=== PATIENT | male | born 1945 | race Caucasian/White ===

== ENCOUNTER 2024-02-20 19:58 | Inpatient (IN) | payer MEDICARE, OTHER, SELFPAY ==
[2024-02-20] VITALS (23 sets, daily range): BP systolic 170–254; BP diastolic 76–169; BMI 34.2; BMI 31.8
[2024-02-20 13:38] LABS: % Basophils 0.5 % (0-2); % Eosinophils 1.1 % (0-6); % Immature Granulocytes 0.3 % (0-0.5); % Lymphocytes 11.4 % (20.5-51.1); % Monocytes 8.1 % (1.7-9.3); % Neutrophils 78.6 % (42.2-75.2); Absolute Eosinophils 0.1 10^3/uL (0-0.7); Absolute Monocytes 0.7 10^3/uL (0.1-0.6); Hematocrit 38.4 % (39.0-52.0); Hemoglobin 12.8 g/dL (13.0-18.0); Mean Corp Hgb Conc. 33.3 g/dL (33.0-37.0); Mean Corpuscular Hgb 27.2 pg (27.0-31.0); Mean Corpuscular Volume 81.5 fL (80.0-94.0); Mean Platelet Volume 11.6 fL (7.4-10.4); Nucleated Red Blood Cells % 0 % (-); Platelet Count 166 10^3/uL (130-400); Red Blood Cell Count 4.71 10^6/uL (4.70-6.10); Red Cell Dist. Width 14.9 % (11.5-14.5); White Blood Cell Count 8.9 10^3/uL (4.8-10.8)
[2024-02-20 13:47] LABS: ALT (SGPT) 24 U/L (0-50); AST (SGOT) 27 U/L (17-59); Albumin 4.8 g/dl (3.5-5.0); Alkaline Phosphatase 72 U/L (38-126); Blood Urea Nitrogen 16 mg/dl (9-20); Calcium 9.8 mg/dl (8.4-10.2); Carbon Dioxide 29 mmol/L (22-30); Chloride 96 mmol/L (98-107); Glucose 99 mg/dl (70-99); Sodium 134 mmol/L (135-145); Total Bilirubin 0.8 mg/dl (0.2-1.3); Total Protein 7.5 g/dl (6.3-8.2); eGFR 56.58
[2024-02-20 13:51] LABS: NT-proBNP 2630 pg/ml; Troponin I < 0.012 ng/ml
[2024-02-20 13:57] LABS: Potassium 4.3 mmol/L (3.5-5.1)
--- NOTE | 2024-02-20 15:57 | ED.GENMED ---
History of Present Illness
General
Chief Complaint: Blood Pressure Problem
Source: patient
Exam Limitations: none
Time Seen by Provider: 02/20/24 14:54
Nursing documentation reviewed up to this point in time: agreed with
Travel History
Have you had any contact with someone who has COVID-19?: No
Do you have any symptoms of coronavirus? Fever > 100 degrees, chills, cough, shortness of breath, sore throat, loss of taste or smell, muscle aches, or headache?: No
History of Present Illness
History of Present Illness:
79-year-old male with a past medical history of hypertension who presents to the emergency department with his son for evaluation of hypertension. Patient reports that he has had chronic difficult to control blood pressure. He is currently on
labetalol 100 mg 3 times daily, losartan 25 mg daily�losartan was added last week by his construction technician. He says that today he had an appointment with his primary doctor and was found to be severely hypertensive and was recommended to come to the
emergency room to be assessed. Patient says that he is asymptomatic here in the emergency room�denies any chest pain, headache, dizziness, speech or vision changes, focal weakness or numbness in extremities. He does say that he has had some issues
with shortness of breath over the past 6 to 12 months�he says this has been progressively worse and that he has been referred to see cardiology and pulmonology as an outpatient. He has chronic kidney disease follows with Dr. Lemus.
Past History
Past History
ED Past Medical History: HTN
ED Past Surgical History: None
Patient has exhibited threatening behavior?: No
PSI?: No
Social History
Tobacco: Non-smoker
Alcohol: Occasional
Personal:
Living: with family
Employment: Retired
Review of Systems
Review of Systems
All Other Systems: ROS reviewed and negative except as documented in HPI and ROS
Constitutional: Denies fever or chills
EENT: Denies sore throat or runny nose
Respiratory: Reports trouble breathing; Denies cough
Cardiac: Denies chest pain, diaphoresis or palpitations
ABD/GI: Denies abdominal pain, nausea, vomiting or diarrhea
: Denies flank pain
Musculoskeletal: Denies neck pain or back pain
Neurological: Denies dizzy, headache, weakness or numbness
Phy Exam
Physical Exam
Physical Exam:
General: Awake, alert; no acute distress
Head: Normocephalic, atraumatic
Eyes: Conjunctiva normal, EOMI, pupils equal round and reactive to light bilaterally
Throat: Airway intact, handling secretions
Neck: Trachea midline, no JVD
Lungs: Clear to auscultation bilaterally, no wheezing, rales, rhonchi
Heart: Regular rate and rhythm, no murmurs, gallops, or rubs
Abd: Soft, non distended, nontender
Neuro: Cranial nerves grossly intact, speech fluid
Skin: no rash
Extremities: +1 edema in the lower extremities, equal pulses in all extremities
Scores
Heart Failure Risk
Heart Failure Risk Score: Not Applicable
Heart Score for Chest Pain Patients
STEMI patient?: Not applicable
Withdrawal Assessment of Alcohol
Withdrawal Assessment Completed?: Not applicable
Course
Orders/Labs/Results
Orders:
Orders
02/20/24 13:17
Electrocardiogram (*1) Urgent
Reason for Study: Other
Other Reason for Exam: elevated BP
02/20/24 13:18
EKG- Treatment ONCE
02/20/24 13:19
Complete Blood Count/With Diff Urgent
Comprehensive Metabolic Panel Urgent
Pro-BNP [NT-proBNP] Urgent
Troponin I Urgent
02/20/24 15:56
HydrALAZINE [Apresoline] 10 mg IV NOW STA
02/20/24 15:57
CR Chest - 2 Views Urgent
Comment:
Reason For Exam: sob, severe HTN
02/20/24 16:24
Labetalol HCl [Trandate] 10 mg IV NOW STA
02/20/24 17:12
Labetalol HCl [Trandate] 10 mg IV NOW STA
Abnormal Lab Results
02/20/24
13:19
Hgb 12.8 L g/dL
(13.0-18.0)
Hct 38.4 L %
(39.0-52.0)
RDW 14.9 H %
(11.5-14.5)
MPV 11.6 H fL
(7.4-10.4)
Absolute Neuts (auto) 7.0 H 10^3/uL
(1.4-6.5)
Absolute Lymphs (auto) 1.0 L 10^3/uL
(1.2-3.4)
Absolute Monos (auto) 0.7 H 10^3/uL
(0.1-0.6)
Neutrophils % 78.6 H %
(42.2-75.2)
Lymphocytes % 11.4 L %
(20.5-51.1)
Sodium 134 L mmol/L
(135-145)
Chloride 96 L mmol/L
(98-107)
02/20/24 13:19
02/20/24 13:19
Vital Signs
Initial and Last Documented VS:
Initial Vital Signs
Temp Pulse Resp BP Pulse Ox
36.8 C 68 18 193/101 94
02/20/24 13:15 02/20/24 13:15 02/20/24 13:15 02/20/24 13:15 02/20/24 13:15
Last Documented Vital Signs
Temp Pulse Resp BP Pulse Ox
36.8 C 62 17 220/118 94
02/20/24 13:15 02/20/24 18:00 02/20/24 18:00 02/20/24 17:57 02/20/24 18:00
MDM/Problems Addressed
Differential Diagnosis Includes:
Hypertension
MDM/Problems Addressed:
79-year-old male presents with hypertension�found to be severely hypertensive at PCP office and referred to the emergency room for assessment. He says he has had difficult to control high blood pressure has been on labetalol and recently started on
losartan. He is asymptomatic here in the emergency room aside from what he describes as chronic dyspnea worsening over the past 6 to 12 months no worse today than usual. He is severely hypertensive here to 237/103; rest of vitals normal. Physical
exam as above. Plan to place an IV check labs including CBC and CMP will check troponin, BNP, chest x-ray and EKG. Will treat with IV hydralazine for severe hypertension. Will monitor closely reassess after the above.
After initial dose of hydralazine patient still with a blood pressure over 200 systolic we will treat with IV labetalol.
Initial labs reviewed CBC shows marginal anemia to 12.8 otherwise unremarkable, CMP no clinically significant abnormalities�creatinine acceptable 1.3. Troponin undetectable, BNP is slightly elevated at 2630. Chest x-ray shows small left pleural
effusion with what I suspect is likely atelectasis�although he has some shortness of breath that has been ongoing for 6 to 8 months and low suspicion for pneumonia. Continue to monitor as he remains severely hypertensive.
Despite IV hydralazine and IV labetalol x 1 patient remains with a systolic blood pressure over 200 will dose with additional labetalol here.
Patient remains hypertensive to 220/118 despite multiple parenteral antihypertensives here. I think at this point he should be admitted for blood pressure control. May also benefit from echocardiogram for further workup of his chronic dyspnea in
the setting of poorly controlled hypertension. Case discussed with hospitalist for admission.
Chronic conditions affecting care:
Hypertension
Acute Exacerbation and/or Progression of Chronic Illness:
Acutely hypertensive manage as above
Acute Exacerbation and/or Progression of Chronic Illness: HTN
*Radiology
Radiology exam reviewed: preliminary read by ED provider and radiology read reviewed
*Pulse Oximetry
Patient hypoxic: no
*Critical Care Note
Total Time (30-74mins, 75-104mins- exclusive of procedures): Not Applicable
Data Reviewed
Source: patient, records and family (Son)
Patient Management
Discussion with other providers: Hospitalist (Discussed with hospitalist)
Escalation/DeEscalation of care consider admission/obs:
Admission indicated
ED Attending Note
-
Portions of this chart may have been created with voice recognition software.� Occasional wrong word or��sound alike� substitutions may have occurred due to the inherent limitations of voice recognition software.
Discharge Plan
Departure
Patient Disposition: Admit
Date of Disposition: 02/20/24
Time of Disposition: 18:17
Admit to doctor: Jenni
Presentation/result/management discussed w/ accepting MD/DO: Hospitalist
Discharge Problem:
Hypertensive urgency
Prescriptions:
No Action
tamsulosin 0.4 mg capsule
0.4 mg PO QPM
thiamine HCl (vitamin B1) 100 mg Tablet
100 mg PO DAILY Qty: 90 0RF
nifedipine 30 mg Tablet Extended Release
30 mg PO BID Qty: 90 0RF
aspirin 81 mg Tablet,Delayed Release (Dr/Ec)
81 mg PO DAILY Qty: 90 0RF
folic acid 1 mg Tablet
1 mg PO DAILY Qty: 90 0RF
labetalol 100 mg Tablet
50 mg PO BID Qty: 180 0RF
cyanocobalamin (vitamin B-12) 1,000 mcg capsule
1,000 mcg PO DAILY Qty: 90 0RF
Referrals:
Neo Can CRNP [Family Provider] -
Interventions
Interventions:
*Risk Screen - Suicide Last Done: 02/20/24 15:02
*General Assessment Last Done: 02/20/24 15:02
*Neglect/Abuse Screening Last Done: 02/20/24 15:02
ED- Fall Risk Assessment Last Done: 02/20/24 15:02
*ED COVID-19 Vaccine History Last Done: 02/20/24 13:15
ED- Cardiac Assessment Last Done: 02/20/24 15:02
ED- Neurological Assessment Last Done: 02/20/24 15:02
ED- Pulmonary Assessment Last Done: 02/20/24 15:02
Discharge Date and Time
Print Language: LAO
[2024-02-20] MEDS: APRESOLINE 10 MG IV (16:05)
[2024-02-20] MEDS: TRANDATE 10 MG IV ×2 (16:35→17:18)
--- NOTE | 2024-02-20 18:29 | HPS.HSE ---
Addendum entered and electronically signed by Ruben Arteaga MD 02/21/24 08:43:
see separate note
Original Note:
Family Physician
-
Family Physician: OSIEL Rodriguez
Chief Complaint
-
Elevated Blood Pressure
History of Present Illness
Patient is a 79 y/o male with a past medical history of hypertension, atrial fibrillation, chronic kidney disease, and urinary retention who presents for high blood pressure. His lumber planer (Dr. Lemus) added losartan to his antihypertensive
regimen last week due to high systolic blood pressure readings in the office in the 180s-190s. Today he had elevated blood pressures in the PCP office and was sent to the emergency department with SBP 250. He admits to chronic dyspnea on exertion
and has appointments scheduled with pulmonology and cardiology. His legs are chronically edematous. He does not have any current complaints. He denies acute headache, vision changes, chest pain, and shortness of breath.
Medical History
Past Medical History
Past Medical History: Reports Other
Additional Past Medical History:
Paroxysmal Atrial Fibrillation
Essential Hypertension
CKD Stage III
BPH
Past Surgical History: Reports Other
Additional Past Surgical History:
Appendectomy
Social History
Tobacco: Former Smoker
Alcohol: Daily (2-3 beers)
Family History
Family History: Not pertinent
Allergies / Home Medications
Allergies reflects when Allergies were last updated in [employer].
Home Medications with original date entered in [employer]
Allergy/Medication List:
Allergies
Allergy/AdvReac Type Severity Reaction Status Date / Time
No Known Allergies Allergy Verified 02/20/24 13:16
Home Medications
aspirin 81 mg tablet,delayed release 81 mg PO DAILY #90 tabs 11/29/22
cyanocobalamin (vitamin B-12) 1,000 mcg capsule 1,000 mcg PO DAILY #90 caps 11/29/22
folic acid 1 mg tablet 1 mg PO DAILY #90 tabs 11/29/22
thiamine HCl (vitamin B1) 100 mg tablet 100 mg PO DAILY #90 tabs 11/29/22
finasteride 5 mg tablet 5 mg PO DAILY 02/20/24
labetalol 300 mg tablet 300 mg PO TID 02/20/24
losartan 25 mg tablet 25 mg PO DAILY 02/20/24
magnesium 250 mg tablet 250 mg PO DAILY 02/20/24
spironolactone 25 mg tablet 25 mg PO DAILY 02/20/24
Review of Systems
-
A 12 point ROS was completed and negative except as noted: Yes
Constitutional: Denies Fever or Chills
Respiratory: Reports Trouble Breathing (Chronic dyspnea on exertion)
Cardiac: Denies Chest Pain or Palpitations
Abdomen/GI: Reports Other (GERD)
: Reports Frequency
Neurological: Reports Headache (Chronic) and Numbness (Extremities for at least the past year)
Physical Exam
Vital Signs
Vital Signs
Temp Pulse Resp BP Pulse Ox
98.2 F 75 25 220/118 94
02/20/24 13:15 02/20/24 18:15 02/20/24 18:15 02/20/24 17:57 02/20/24 18:15
Physical Exam
General: Comfortable and Conversant
HEENT: Anicteric and Moist mucous membranes
Respiratory: Clear and Non Labored Respirations
Cardiac: S1/S2 and Irregular Rhythm; No Tachycardia
GI: Soft, Non Tender and Non Distended
Rectal: Deferred by Provider
Musculoskeletal: No Clubbing, No Cyanosis and Other (+2 edema bilateral lower extremities)
Skin: Warm and Dry
Neuro: Awake, Alert, Oriented and Nonfocal/grossly intact
Laboratory Results
-
02/20/24 13:19
02/20/24 13:19
Laboratory Results
Total Bilirubin 0.8 mg/dl (0.2-1.3) 04/08/24 13:19
AST 27 U/L (17-59) 02/20/24 13:19
ALT 24 U/L (0-50) 02/20/24 13:19
Alkaline Phosphatase 72 U/L (38-126) 02/20/24 13:19
Troponin I < 0.012 ng/ml 02/20/24 13:19
Data Reviewed
-
Lab Data: Labs Reviewed by me
Old Records: Reviewed
Impression/Plan
-
Hypertensive Urgency
-Admit to ICU for Nicardipine Drip
-Consult Nephrology
-Continue spironolactone, labetalol and losartan as prior to admission
Urinary Retention, Bladder Scan with 975mL
-Possibly contributing factor to his uncontrolled hypertension
-Place Hinton catheter
-Start Flomax
-Consult Urology
Bilateral Lower Ext Edema
-Check Lower Ext Doppler
-Give dose of Lasix
-Check Echo
-Monitor Is&Os and Daily Weights
Paroxysmal Atrial Fibrillation
-Continue labetalol for rate control
-Patient declined anticoagulation in the past
CKD Stage III
-Creatinine at baseline
BPH
-Continue Proscar
-Check bladder scans
Obesity due to Excess Calories
-Encourage weights loss
Alcohol Use Disorder
-Continue alcohol withdrawal protocol
DVT proph: SCDs
Code Status: Full Code
--- NOTE | 2024-02-20 18:49 | W.PN.UPDATE ---
Addendum entered and electronically signed by Ruben Arteaga MD 02/20/24 18:55:
Discussed with patient's son at bedside regarding the plan.
Also discussed about risks of stroke not being on anticoagulation with A-fib.
Original Note:
Update Note
Progress Note Update
79-year-old male presents with elevated blood pressure. Patient states that he always has had blood elevated blood pressure. He recently saw Dr. Brandon doctor and was started on losartan. He has been taking it for 1 week now. He supposed to get
repeat blood work as outpatient. He also has shortness of breath with exertion and he was advised to see pulmonology and cardiology. His cardiology appointment and pulmonary appointment are not for a while. He followed up with his PCP who took
his blood pressure was very elevated and patient was sent to the ER.
Patient states that he has numbness and tingling of his extremities for at least 1 year. Slight headache this morning. No weakness, visual changes diplopia dysphagia or any other symptoms. He does not have any chest pain.
He has had chronic lower extremity edema for a long time. He has a history of atrial fibrillation and he does not take anticoagulation by his choice. His has had a stroke and he does not want to take medicines. He wants to explore watchman
device as outpatient.
Seen and examined patient with physician assistant manager airside operations Isi Rueda and agree with the notes. Formulated plan together
On examination awake alert oriented x 3
Cardiac close no sinus regular
Chest clear to auscultation, decreased on the left side
Abdomen soft and nontender
Bilateral pedal edema
Neuroexam is nonfocal except for mild subjective numbness of the fingertips and toes. Again that is not new.
Hypertensive urgency
Will admit to ICU
Continue current medicines and add Cardene drip
Nephrology to evaluate
Will obtain echo
Dopplers of bilateral lower extremity
Will keep blood pressure less than 160 mmHg tonight with the help of the drip.
Continue finasteride for prostate disease
2 g sodium diet
Daily alcohol use-2 beers
Thiamine 200 mg daily
MSAS protocol
Will give 1 dose of Lasix now-patient looks volume overloaded may need more diuresis
Await echo
[2024-02-20] MEDS: LASIX 40 MG IV (19:11)
[2024-02-20 21:27] LABS: TSH Reflex To Free T4 0.81 uIU/ml (0.47-4.68)
--- NOTE | 2024-02-20 22:07 | W.PN.UPDATE ---
Update Note
Progress Note Update
79M presenting to ER w/ high blood pressure.
Recently started on Losartan by his word processing operator in addition to antihypertensive regimen last week due to high SBPs in office (180s-190s).
SBP 250 today @PCP visit - sent to ER.
Prior urologic history of acute urinary retention with hematuria and clots in 09/2022 (1400 cc drained after catheter placement).
Followed as outpatient by Dr. Humphrey for urinary retention w/ incomplete emptying and stable right hydronephrosis.
UDS 12/2022 => no high volume retention or VUR, +DO, equivocal for NICKERSON.
Prostate volume ~90 cc.
Patient preferred to avoid intervention via CIC vs. surgical intervention (TURP vs. robotic partial prostatectomy) - started on medical therapy w/ tamsulosin + finasteride by Urology.
Last seen as outpatient in 03/2023 - 3 mo visit scheduled, but patient was non-complaint w/ Urology F/U.
PVRs ranged 275-650 cc as outpatient.
Tamsulosin and finasteride NOT being taken by patient as of 02/13 outpatient visit w/ Dr. Lemus.
Cr 1.3 (baseline 1.4-1.5)
A/P:
Acute urinary retention
H/o BPH
Stable mild right hydronephrosis
CKD 3a
Chronic incomplete emptying
- Maintain Hinton catheter to drainage
- Start tamsulosin 0.4 mg qhs
- Start finasteride 5 mg daily
- Recommend RBUS to assess upper tracts
D/w Hospitalist.
[2024-02-20] MEDS: TRANDATE 300 MG PO (22:38)
[2024-02-20] MEDS: FLOMAX 0.400000000000000022 MG PO (22:38)
[2024-02-20] MEDS: CARDENE 200 IV (23:40)
[2024-02-21] VITALS (36 sets, daily range): BP systolic 118–176; BP diastolic 61–139; BMI 31.8
[2024-02-21 01:20] LABS: Urine Albumin 3+ (Neg - Trace); Urine Bilirubin Negative (Negative); Urine Character Slightly Cloudy (Clear); Urine Color Red; Urine Glucose Negative (Negative); Urine Ketone Negative (Negative); Urine Leukocyte 1+ (Negative); Urine Nitrite Negative (Negative); Urine Occult Blood 4+ (Negative); Urine Urobilinogen Negative (Neg - 1+)
[2024-02-21 01:38] LABS: Urine Bacteria Few (Negative); Urine Red Blood Cell 80-90 /HPF (0-2)
[2024-02-21] MEDS: ULTRAM 50 MG PO (02:08)
[2024-02-21 04:41] LABS: INR 1.11; PT 14.2 Sec (11.4-14.6)
[2024-02-21 04:42] LABS: APTT 36.7 Sec (23.4-35.0)
--- NOTE | 2024-02-21 04:56 | PTCARENOTE ---
02/20/24- received pt from ED, assessments and admission completed, son at bedside,
no c/o pain or discomfort, patient has +3 edema to b/l/e, no other skin issues. patient having some leg cramps, feet elevated with effective results.
cardine drip initiated at 2.5 for spb>200
patient arrived with cm with pink tinged urine, has hx of BPH and retention (ED placed cm and emptied 3400 ml)
02/21/24 - cardine increased to 5.0 for spb of 190, cm continues to have pink/red urine, ED says it was difficult placement.
according to patient this is norrmal for him after getting a cm.
0300 - cardine decreased to 2.5 for sbp of 144
0400- cardine off for sbp of <135, labs drawn and sent no new orders at this time,
cm has some clots and is darker red, WIRELINE FIELD OPERATOR aware.
call cadena and personal belongings with in reach, no further needs at this time.
[2024-02-21 05:31] LABS: Hematocrit 39.5 % (39.0-52.0); Hemoglobin 13.3 g/dL (13.0-18.0); Mean Corp Hgb Conc. 33.7 g/dL (33.0-37.0); Mean Corpuscular Hgb 27.4 pg (27.0-31.0); Mean Corpuscular Volume 81.4 fL (80.0-94.0); Mean Platelet Volume 11.9 fL (7.4-10.4); Platelet Count 167 10^3/uL (130-400); Red Blood Cell Count 4.85 10^6/uL (4.70-6.10); Red Cell Dist. Width 14.9 % (11.5-14.5); White Blood Cell Count 11.4 10^3/uL (4.8-10.8)
[2024-02-21 05:54] LABS: Blood Urea Nitrogen 19 mg/dl (9-20); Calcium 9.5 mg/dl (8.4-10.2); Carbon Dioxide 28 mmol/L (22-30); Chloride 98 mmol/L (98-107); Estimated Creatinine Clearance 56 ml/min; Glucose 100 mg/dl (70-99); HDL Cholesterol 66 mg/dl; LDL Cholesterol, Calculated 52 mg/dl; Phosphorus 4.2 mg/dl (2.5-4.5); Potassium 3.7 mmol/L (3.5-5.1); Sodium 134 mmol/L (135-145); Total Cholesterol 146 mg/dl (50-199); Triglyceride 140 mg/dl (10-149); Very Low Density Lipoprotein 28 mg/dl (0-30); eGFR 51.77
[2024-02-21] MEDS: PROSCAR 5 MG PO (07:37)
[2024-02-21] MEDS: VITAMIN B1 100 MG PO (07:37)
[2024-02-21] MEDS: VITAMIN B-12 1000 MCG PO (07:37)
[2024-02-21] MEDS: ASPIR LOW (ENTERIC COATED) 81 MG PO (07:38)
[2024-02-21] MEDS: ALDACTONE 25 MG PO (07:38)
[2024-02-21] MEDS: FOLVITE 1 MG PO (07:38)
[2024-02-21] MEDS: PROTONIX 40 MG PO (07:39)
[2024-02-21] MEDS: COZAAR 25 MG PO (07:39)
[2024-02-21] MEDS: TRANDATE 300 MG PO ×3 (07:40→21:14)
--- NOTE | 2024-02-21 08:42 | W.PN.HOSP.TC ---
Addendum entered and electronically signed by Ruben Arteaga MD 02/21/24 09:01:
Correction-alcohol patient drinks 2 beers a day
Original Note:
Today's Communication/Plan
-
Labetalol 3 times daily is not be a good idea in terms of patient being compliant taking the medicine.
Last creatinine improved with can try more Lasix
A-fib chronically distended bladder was contributing to lower extremity edema , calcium nick may not be a bad idea to be considered.
Assessment / Plan
Assessment / Plan
79-year-old male with lower extremity edema, hypertension
On examination patient awake alert
Feeling better
Cardiovascular system S1-S2 irregular,, Short systolic murmur at apex
Chest clear to auscultation
Bilateral lower extremity better neuroexam nonfocal
# Hypertensive urgency
Was briefly on Cardene drip yesterday
Continue spironolactone, labetalol, losartan
Nephrology consulted. May need to make adjustments to the above regimen.
Ultrasound-cortical thinning of each kidney suggesting medical renal disease. Chronic mild hydronephrosis of the right kidney unchanged. Urinary bladder is decompressed by Hinton catheter. Echogenic debris in the urinary bladder likely
representing hemorrhage
# Acute on chronic urinary retention
Enlarged prostate
Chronic bladder outlet obstruction suspected
Hinton catheter placed
Flomax started
Patient already on Proscar
Unclear if he was compliant with Proscar
Hematuria likely secondary to outlet obstruction
Urology evaluation appreciated
# Bilateral lower extremity edema
Possibly from chronically full bladder tube along with venous insufficiency
Echo to be updated
Venous Dopplers negative for DVT
# Paroxysmal atrial fibrillation
Patient is on labetalol for rate control
He has declined and is still declining anticoagulation
# Chronic kidney disease stage III
# Daily alcohol use
2 martinis antibiotic
Withdrawal protocol
Thiamine supplementation
# History of asthma
# Obesity per BMI criteria
# DVT prophylaxis-SCDs
# Full code
Discussed with nursing at bedside
Anticipated Discharge: Within 24 hours
Subjective/Interval History
-
Date of Service: February 21, 2024
Objective Data
-
Labs:
Laboratory Results
02/21/24 02/21/24 02/21/24
04:10 08:29 12:00
WBC 11.4 H
Hgb 13.3
Hct 39.5
Plt Count 167
PT 14.2
INR 1.11
APTT 36.7 H
Sodium 134 L Pending Pending
Potassium 3.7 Pending Pending
Chloride 98 Pending Pending
Carbon Dioxide 28 Pending Pending
BUN 19 Pending Pending
Creatinine 1.4 H Pending Pending
Glucose 100 H Pending Pending
Calcium 9.5 Pending Pending
02/21/24 02/21/24
16:00 20:00
WBC
Hgb
Hct
Plt Count
PT
INR
APTT
Sodium Pending Pending
Potassium Pending Pending
Chloride Pending Pending
Carbon Dioxide Pending Pending
BUN Pending Pending
Creatinine Pending Pending
Glucose Pending Pending
Calcium Pending Pending
Vital Signs:
Vital Signs
Temp Pulse Resp BP Pulse Ox
98.4 F 60 17 162/78 96
02/21/24 07:10 02/21/24 07:40 02/21/24 06:30 02/21/24 07:40 02/21/24 07:10
I&O
02/20/24 02/21/24 02/22/24
06:59 06:59 06:59
Intake Total 290.0 / 290.0
Output Total 4380 / 4680 300 / 300
Balance -4090.0 / -4390.0 -300 / -300
[2024-02-21 08:52] LABS: Glycohemoglobin (HgbA1c) 5.3 % (4.0-5.6)
[2024-02-21 08:56] LABS: Blood Urea Nitrogen 20 mg/dl (9-20); Calcium 9.5 mg/dl (8.4-10.2); Carbon Dioxide 30 mmol/L (22-30); Chloride 98 mmol/L (98-107); Estimated Creatinine Clearance 56 ml/min; Glucose 106 mg/dl (70-99); Sodium 134 mmol/L (135-145); eGFR 51.77
[2024-02-21] MEDS: VITAMIN B1 PO (10:26)
--- NOTE | 2024-02-21 10:31 | PTCARENOTE ---
Pt's daughter Teresa at the bedside. Pt ate all his breakfast. Does not want to get OOB at this time. No changes.
--- NOTE | 2024-02-21 11:13 | CON.INTV ---
Documented by User: Alon Bhatti MD, Resident 02/21/24 15:48
Consultation
Consultation Request
Date/Time Consultation Requested: 02/21/2024
Date/Time Consultation Performed: 02/21/2024
Medical History
-
Chief Complaint: Hypertensive Urgency
History of Present Illness:
Is a patient is a 79-year-old male past medical history of hypertension, CKD stage III, urinary retention, and alcohol abuse who presented to ED yesterday from his PCPs office due to high blood pressure. Patient stated that he was started on
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 While in the ED, his blood pressure was as high as 254/112 which remained high despite several antihypertensive administrations.his EKG showed atrial fibrillation and he also had a creatinine of 1.3 which is
likely his baseline. His proBNP was elevated at 2630 with chest x-ray showing left pleural effusion with consolidation. Patient was admitted to the ICU for further evaluation.
Overnight, he was treated with Lasix, labetalol, insulin on Cardene drip. Patient's blood pressure remained labile between 150s and 160s. Today, patient was seen with family at bedside. He endorsed shortness of breath with exertion which he
admitted has been going on for a long time and has appointments with pulmonology and cardiology. He denies headaches, chest pain, weakness, visual changes, abdominal pain, and dizziness. Patient however stated that he is somewhat compliant with his
medications but 'spaces them out'. He does not know if these medications work or if they mixed with each other to cause problems. Patient reports that he is not always around to take his medications 3 times daily and tries to take them when he
remembers. He does not check his blood pressure at home. He also has bilateral lower extremity edema which he reports is chronic. He also reports bilateral tingling sensation in his fingers and toes.
Of note, patient was discharged from this hospital in November 2022 for similar episode of hypertensive urgency. At that time, he was found to have vitamin B12 deficiency and was prescribed vitamin B12 and folate. He was asked to stop taking
losartan and NSAIDs due to DESTINY. Patient reports that he does not take his vitamin B12 and folate because he does not understand how it works and what they are for.
Past Medical History
Past Medical History: HTN
Past Surgical History: None
Social History
Tobacco: Former Smoker
Alcohol: Chronic Alcoholic
Drug: None
Personal:
Living: With Family
Allergies / Home Medications
Allergies
Allergy/AdvReac Type Severity Reaction Status Date / Time
No Known Allergies Allergy Verified 02/20/24 13:16
Home Medications
�Medication �Instructions �Recorded �Confirmed �Last Taken �Type
aspirin 81 mg tablet,delayed 81 mg PO DAILY #90 tabs 11/29/22 02/20/24 02/19/24 Rx
release
cyanocobalamin (vitamin B-12) 1,000 mcg PO DAILY #90 caps 11/29/22 02/20/24 02/19/24 Rx
1,000 mcg capsule
acetaminophen 500 mg tablet 1,000 mg PO DAILYPRN PRN severe 02/20/24 02/20/24 2 Days Ago History
(Tylenol Extra Strength) pain ~02/18/24
acetaminophen 500 mg tablet 500 mg PO DAILYPRN PRN mild pain 02/20/24 02/20/24 2 Days Ago History
(Tylenol Extra Strength) ~02/18/24
finasteride 5 mg tablet 5 mg PO DAILY 02/20/24 02/20/24 02/20/24 History
folic acid 800 mcg tablet 0.8 mg PO DAILY 02/20/24 02/20/24 02/19/24 History
labetalol 300 mg tablet 300 mg PO TID 02/20/24 02/20/24 02/20/24 History
losartan 25 mg tablet 25 mg PO DAILY 02/20/24 02/20/24 02/20/24 History
magnesium 250 mg tablet 250 mg PO DAILY 02/20/24 02/20/24 02/19/24 History
spironolactone 25 mg tablet 25 mg PO DAILY 02/20/24 02/20/24 02/20/24 History
Review of Systems
Vitals / Labs / Diagnostic Testing
Vital Signs
Temp Pulse Resp BP Pulse Ox
98.4 F 64 18 159/82 94
02/21/24 07:10 02/21/24 10:00 02/21/24 10:00 02/21/24 10:00 02/21/24 10:00
Lab Data
02/21/24 04:10
02/21/24 20:00
Laboratory Results
02/21/24
04:10
PT 14.2
INR 1.11
APTT 36.7 H
Diagnostic Testing:
Physical Exam
-
HEENT: Normocephalic and Anicteric
Cardiovascular: S1/S2 and Irregular Rhythm
Respiratory: Clear, Non-Labored Respirations and Other (Decreased breath sounds on the left side)
GI: Soft, Non Distended and Normal Bowel Sounds
Neurology: Awake, Alert and AO x 3
Skin: Warm, Dry and Good Color
General: Comfortable
Exam:
Neuroexam unremarkable except for bilateral numbness on fingertips and toes.
Assessment
-
Assessment / Plan
This is a 79-year-old male with past medical history of hypertension, A-fib, urinary retention and alcohol use disorder who was admitted from the ED due to severe hypertension despite administration of several antihypertensives. He was treated with
Cardene drip in the ED and a Hinton was placed which you did not 175 mL of bloody urine. Overnight his blood pressure remained labile with SBP in the 150s to 160s which has trended downward while receiving antihypertensives during the course of the
day. His chest x-ray showed moderate left pleural effusion with consolidation confirmed on chest ultrasound.
Impression:
Presentation with severe high blood pressure.
Acute on chronic kidney injury with urinary retention.
Bilateral LE edema.
Medication noncompliance.
Conditions prior to admission:
Paroxysmal Atrial Fibrillation
Essential Hypertension
CKD Stage III
History of BPH
Alcohol use disorder
Plan:
Presentation with severe high blood pressure.
-Hypertensive urgency most likely due to medication noncompliance.
-BP trending down on spironolactone and labetalol; continue medications
-Will most likely hold losartan given patient's CKD.
-Continue current medications and monitor BP, I&O's and daily weights.
Acute on chronic kidney injury with urinary retention and right hydronephrosis.
-Baseline creatinine of 1.4�1.5. Patient is within baseline.
-Most likely contributing to high blood pressure.
-Bladder scan 975 mL of urine, continue bladder scan.
-Continue tamsulosin.
-Continue finasteride.
-Urology following.
-Consider holding losartan given patient's DESTINY.
Bilateral LE edema.
-Most likely due to heart failure given patient's presentation with exertional dyspnea.
-Echo pending.
-Venous Doppler negative for DVT.
-Cardiology consult.
-Consider IV Lasix.
Medication noncompliance.
-Patient noncompliant with antihypertensive, tamsulosin and finasteride and urology follow-up.
-Educated patient on the importance of medical follow-ups and medication compliance.
-Patient will benefit from longer acting medications given his lack of compliance.
Paroxysmal A-fib:
-Rate controlled on labetalol.
-Patient would benefit from anticoagulation.
Alcohol use disorder:
-Daily alcohol use.
-Alcohol withdrawal protocol.
-Thiamine supplementation.
DVT proph: SCDs
Data Reviewed
-
EKG: Tracing personally visualized and interpreted, Report reviewed by me and Discussed with Physician
Radiology: Image personally visualized and interpreted, Report reviewed by me and Discussed with Physician
Ultrasound: Image personally visualized and interpreted, Report reviewed by me and Discussed with Physician
Labs: Labs reviewed by me and Discussed with Physician
Old Records: Reviewed

Documented by User: Colleen Gamboa MD 02/21/24 15:52
Consultation
Consultation Request
Reason for Consultation: critical care
Medical History
-
History of Present Illness:
History obtained from the patient, daughter at bedside and reviewing medical records. This a patient is a 79-year-old male past medical history of hypertension, CKD stage III, urinary retention, and alcohol abuse who presented to ED yesterday
from his PCPs office due to high blood pressure. 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 While in the ED, his blood pressure was as high as 254/112 which remained high despite several antihypertensive
administrations.his EKG showed atrial fibrillation and he also had a creatinine of 1.3 which is likely his baseline. His proBNP was elevated at 2630 with chest x-ray showing left pleural effusion with consolidation. Patient was admitted to the ICU
for further evaluation 02/20/24.
Overnight, he was treated with Lasix, labetalol, insulin and Cardene drip. Patient's blood pressure remained labile between 150s and 160s. Today, patient was seen with family at bedside. He endorsed shortness of breath with exertion which he
admitted has been going on for 1-2 months and has appointments with pulmonology and cardiology. He denies headaches, chest pain, weakness, visual changes, abdominal pain, and dizziness. Patient however stated that he is somewhat compliant with his
medications but 'spaces them out'. He does not know if these medications work or if they mixed with each other to cause problems. Patient reports that he is not always around to take his medications 3 times daily and tries to take them when he
remembers. He does not check his blood pressure at home. He also has bilateral lower extremity edema which he reports is chronic. He also reports bilateral tingling sensation in his fingers and toes. He is caring for his who recently had a
stroke
Of note, patient was discharged from this hospital in November 2022 for similar episode of hypertensive urgency. At that time, he was found to have vitamin B12 deficiency and was prescribed vitamin B12 and folate. He was asked to stop taking
losartan and NSAIDs due to DESTINY. Patient reports that he does not take his vitamin B12 and folate because he does not understand how it works and what they are for.
.
PMH: History of paroxysmal atrial fibrillation, new onset diagnosed November 2022. History of renal insufficiency in the past. BPH, history of anemia. History of Gleason's esophagitis/GERD, questionable asthma, questionable dysphagia
Past Medical History
Past Medical History: None (See above)
Social History
Tobacco: Former Smoker ([id number], quit )
Alcohol: Daily (Admits to 2-3 beers a day)
Living: With Family (with )
Employment: Retired
Family History
Family History: Other (There is no clear family history of cancer, lung disease or blood clots)
Review of Systems
-
All other systems: Negative unless noted (Daughter states he gets occasional coughing episodes with eating or drinking. Patient denies any snoring. Patient refuses anticoagulation for atrial fibrillation)
Physical Exam
-
Cardiovascular: Peripheral Edema (2+ edema)
Respiratory: Other (Decreased breath sounds on the left side. No egophony)
Assessment
-
Assessment / Plan
This is a 79-year-old male with past medical history of hypertension, A-fib, urinary retention and alcohol use disorder who was admitted from the ED due to severe hypertension despite administration of several antihypertensives. He was treated with
Cardene drip in the ED and a Hinton was placed which yielded 175 mL of bloody urine. Overnight his blood pressure remained labile with SBP in the 150s to 160s, DBP> 110, which has trended downward while receiving antihypertensives during the course
of the day. His chest x-ray showed moderate left pleural effusion with consolidation confirmed on chest ultrasound.
Impression:
Presentation with severe high blood pressure.
Hypertensive urgency
Acute renal insufficiency
CKD III with urinary retention
Baseline creatinine 1.5
Bilateral LE edema.
Medication noncompliance.
Conditions prior to admission:
Paroxysmal Atrial Fibrillation
Essential Hypertension
CKD Stage III
History of BPH
Alcohol use disorder
Plan:
Presentation with severe high blood pressure.
-Hypertensive urgency most likely due to medication noncompliance.
-BP trending down on spironolactone and labetalol; continue medications
-Will most likely hold losartan given patient's CKD.
-Continue current medications and monitor BP, I&O's and daily weights.
Acute on chronic kidney injury with urinary retention and right hydronephrosis.
-Baseline creatinine of 1.4�1.5. Patient is within baseline.
-Most likely contributing to high blood pressure.
-Bladder scan 975 mL of urine, continue bladder scan.
-Continue tamsulosin.
-Continue finasteride.
-Urology following.
-Consider holding losartan given patient's DESTINY.
Bilateral LE edema.
-Most likely due to heart failure given patient's presentation with exertional dyspnea.
-Echo pending.
-Venous Doppler negative for DVT.
-Cardiology consult.
-Consider IV Lasix.
Medication noncompliance.
-Patient noncompliant with antihypertensive, tamsulosin and finasteride and urology follow-up.
-Educated patient on the importance of medical follow-ups and medication compliance.
-Patient will benefit from longer acting medications given his lack of compliance.
Paroxysmal A-fib:
-Rate controlled on labetalol.
-Patient would benefit from anticoagulation. Patient has refused anticoagulation in the past despite risks of stroke.
Alcohol use disorder:
-Daily alcohol use.
-Alcohol withdrawal protocol.
-Thiamine supplementation.
DVT proph: SCDs

The above reviewed at length. Patient seen and examined independently by myself and with the resident.
Salient features of presentation include 1 to 2 months of shortness of breath, now with increased blood pressure noted both with nephrology visit and primary care visit.
Patient required Cardene drip in the ED. Denies any headaches, nausea, vision changes.
Symptoms improved with Cardene drip, now on oral regimen with losartan/labetalol/spironolactone. There may be component of noncompliance.
Medical history, social history, review of systems, allergies, family history as above
Physical exam notable for narrow posterior oropharynx, decreased breath sounds left base without egophony, 2+ edema. Neurological's exam is nonfocal
A/P
Moving forward, we will continue with close monitoring of blood pressure.
Chest x-ray with left lower lobe pleural-parenchymal process, confirmed to be fluid per ultrasound.
No prior films for comparison, therefore chronicity is unclear
Would recommend diagnostic and therapeutic thoracentesis, will set up in the a.m. per interventional radiology and send studies for chemistries, culture, cytology
Echocardiogram pending
Discussed possibility of sleep disordered breathing. Patient denies any symptoms for sleep disordered breathing. Recommend positional therapy
Patient has Hinton catheter in place, history of hematuria
Urology following
Reviewed at length with critical care nursing, respiratory care, pharmacy
Reviewed with primary service
Reviewed with daughter at bedside
TCCT 31 min
--- NOTE | 2024-02-21 12:12 | CM ---
CM following re: discharger planning.
Discussed in Rounds, reviewed pt's chart, met with pt and pt's daughter Katherine at bedside.
Pt is a 79 year old male, admitted with primary dx of Hypertensive urgency, acute on chronic urinary retention.
pt reports he lives with spouse in a , 2 steps to enter, has 3 supportive children. Pt described himself as independent in all areas [employer], drives. No DME, VN or SNF history.
Pt admitted to daily alcohol use: 2-3 beers daily. Pt reports he realized that it is too much alcohol and per pt he has cut alcohol consumption recently. Used to drink even more. CM had a long conversation with the pt regarding alcohol daily use,
alcohol use disorder, [facility], etc and pt expressed his understanding. Pt declined meeting with [facility] and he stated he will take this conversation seriously regarding alcohol abuse and per pt with his family he will decrease significantly
alcohol consumption. CM advised the pt to talk about it with his PCP. [facility] brochure provided.
PCP: [facility]
Pharmacy: [facility]
D/C plan: home with anticipated no needs. Family to transport at discharge.
CM will follow with discharge plan updates as hospitalization progresses
--- NOTE | 2024-02-21 12:15 | PTCARENOTE ---
Assisted pt OOB to BR to brush his teeth. He required holding onto furniture, and was moderately SOB ambulating to the BR, brushing his teeth and returning to the bedside chair. Noted to be partially tripoding in the chair.
--- NOTE | 2024-02-21 15:30 | PTCARENOTE ---
Remains in the chair. Daughter remains at the bedside. They are aware he will be going for a left thoracentesis tomorrow in [place]. I had explain the procedure to them and informed the pt that he should breath better after wards. He remains dim at his
bases posteriorly. Using the IS to 750ml's.
--- NOTE | 2024-02-21 16:49 | W.CON.NEPH ---
Consultation
-
Date/Time Consultation Requested: 02/20/24 21:15
Date/Time Consultation Performed: 02/21/24 5:03PM
Requesting Provider: Isi Gutierrez
Performing Provider: Maida Hawkins
Reason for Consultation: hypertension
Medical History
-
Chief Complaint: hypertensive emergency
History of Present Illness:
Mr. Tony is a 79YOM with PMH of HTN, CKD Stage 3B, hx of urinary retension and alcohol abuse who presented to the ED yesterday for extremely elevated blood pressures in the PCP office. The patient is followed by Dr. Lemus in the outpatient
setting and was initiated on losartan last week. While in the ED, his blood pressure was elevated to 254/112 despite several antihypertensive medications. His EKG also showed concern for Afib. The patient was admitted to the ICU for further
evaluation. Prior to admission, the patient was bladder scanned which showed 975cc of urine in the bladder, he had a Hinton placed.
Overnight, he was treated with a cardene gtt and then was titrated to lasix, spironolactone labetalol and losartan. Nephrology is consulted for assistance in antihypertensive regimen.
His baseline Cr appers to be around 1.3-1.5. Patient endorses significant swelling. States that his urinary frequency had increased and he was dribbling.
Past Medical History
HTN
BPH
CKD Stage 3B
alcohol abuse
Past Medical History: Other
Past Surgical History: Appendectomy
Social History
Tobacco: Former Smoker
Alcohol: Daily
Drug: None
Living: With Family
Family History
Family History: Not Pertinent
Allergies / Home Medications
Allergy/AdvReac Type Severity Reaction Status Date / Time
No Known Allergies Allergy Verified 02/20/24 13:16
�Medication �Instructions �Recorded �Confirmed �Type
aspirin 81 mg tablet,delayed 81 mg PO DAILY #90 tabs 11/29/22 02/20/24 Rx
release
cyanocobalamin (vitamin B-12) 1,000 mcg PO DAILY #90 caps 11/29/22 02/20/24 Rx
1,000 mcg capsule
acetaminophen 500 mg tablet 1,000 mg PO DAILYPRN PRN severe 02/20/24 02/20/24 History
(Tylenol Extra Strength) pain
acetaminophen 500 mg tablet 500 mg PO DAILYPRN PRN mild pain 02/20/24 02/20/24 History
(Tylenol Extra Strength)
finasteride 5 mg tablet 5 mg PO DAILY Urinary Issue 02/20/24 02/20/24 History
folic acid 800 mcg tablet 0.8 mg PO DAILY Supplement 02/20/24 02/20/24 History
labetalol 300 mg tablet 300 mg PO TID Blood Pressure 02/20/24 02/20/24 History
losartan 25 mg tablet 25 mg PO DAILY Blood Pressure 02/20/24 02/20/24 History
magnesium 250 mg tablet 250 mg PO DAILY Supplement 02/20/24 02/20/24 History
spironolactone 25 mg tablet 25 mg PO DAILY Blood Pressure 02/20/24 02/20/24 History
Review of Systems
-
History Source: Patient
All other systems: Negative unless noted
Constitutional: Weight Gain
Respiratory: Cough and Trouble Breathing
Abdomen/GI: Nausea
Musculoskeletal: Edema
Neurological: Weakness
Endocrine: Polyuria
Physical Exam
Vital Signs
Vital Signs
Temp Pulse Resp BP Pulse Ox
98.4 F 68 16 147/75 93
02/21/24 15:20 02/21/24 16:03 02/21/24 14:45 02/21/24 16:03 02/21/24 14:45
Lab Results
WBC 11.4 10^3/uL (4.8-10.8) H 02/21/24 04:10
RBC 4.85 10^6/uL (4.70-6.10) 02/21/24 04:10
Hgb 13.3 g/dL (13.0-18.0) 02/21/24 04:10
Hct 39.5 % (39.0-52.0) 02/21/24 04:10
Plt Count 167 10^3/uL (130-400) 02/21/24 04:10
Sodium Cancelled 02/21/24 20:00
Potassium Cancelled 02/21/24 20:00
Chloride Cancelled 02/21/24 20:00
Carbon Dioxide Cancelled 02/21/24 20:00
BUN Cancelled 02/21/24 20:00
Creatinine Cancelled 02/21/24 20:00
eGFR Cancelled 02/21/24 20:00
Glucose Cancelled 02/21/24 20:00
Calcium Cancelled 02/21/24 20:00
Phosphorus 4.2 mg/dl (2.5-4.5) 02/21/24 04:10
Mvd-B-Rnrxpunetna Pept 2630 pg/ml 02/20/24 13:19
Albumin 4.8 g/dl (3.5-5.0) 02/20/24 13:19
Physical Exam
General: AOx3
HEENT: PERRL, EOMI, Anicteric, Conjunctivae Clear, Ear/Nose Intact and Hearing Normal
Respiratory: Crackels
Cardiac: S1/S2
Breast: N/A
Abdomen: Soft, Nontender and Nondistended
Rectal: Deferred by Provider
Genito-urinary: Bloody Urine
Musculoskeletal: No Clubbing, No Cyanosis and Edema
Skin: No Rash and No Bruising
Neuro: Nonfocal/Grossly Intact
Psych: Mood/afflect pleasant, Insight/judgement good and Appropriate
Assessment/Plan
-
Assessment:
PAfib
HTN
CKD Stage 3B
BPH
Alcohol abuse disorder
Plan:
- presented with hypertensive emergency, improved after Hinton placement
- current antihypertensive regimen: labetalol 300mg PO TID, losartan 25mg daily, spironolactone 25mg daily, tamsulosin 0.4mg
- blood pressures ranging from 110s-130s systolics which is acceptable
- instead of using a short acting beta nick, could consider longer acting one (coreg, metop, etc) for Afib but will defer to primary team
- bilateral lower extremity edema could be in the setting of urinary retention, etc. will initiate patient on standing dose of lasix 40mg until edema is improved. this might need to be titrated. we will monitor
- likely Cr is at baseline, please continue to trend
Data Reviewed
-
Ultrasound: Report Reviewed by me (KUS with stable R hydronephrosis and bilateral medical renal disease)
Labs: Labs Reviewed by me, Discussed with Physician and Discussed with Patient
Old Records: Reviewed
[2024-02-21] MEDS: LOVENOX 40 MG SC (18:12)
[2024-02-21] MEDS: LASIX 40 MG PO (18:13)
--- NOTE | 2024-02-21 21:09 | PTCARENOTE ---
Received patient in chair, standby assist to get back into bed. AAOx3, following commands, denying pain, moves all extremities. Afib, 60s-70s. BP stable, 129/74. Palpable radial and pedal pulses bilaterally. On 2 liters nasal cannula, saturating
94%. Lung sounds diminished at the bases bilaterally, dyspneic on exertion. No bowel movement, cm in place draining cammie urine. Skin intact, right PIV patent, WNL. Call cadena within reach.
[2024-02-21] MEDS: FLOMAX 0.400000000000000022 MG PO (21:15)
[2024-02-22] VITALS (10 sets, daily range): BP systolic 114–167; BP diastolic 60–89; BMI 32.3
[2024-02-22 04:29] LABS: Hematocrit 37.9 % (39.0-52.0); Hemoglobin 12.6 g/dL (13.0-18.0); Mean Corp Hgb Conc. 33.2 g/dL (33.0-37.0); Mean Corpuscular Hgb 27.4 pg (27.0-31.0); Mean Corpuscular Volume 82.4 fL (80.0-94.0); Mean Platelet Volume 11.4 fL (7.4-10.4); Platelet Count 153 10^3/uL (130-400); Red Cell Dist. Width 15.1 % (11.5-14.5); White Blood Cell Count 12.4 10^3/uL (4.8-10.8)
[2024-02-22 05:09] LABS: Blood Urea Nitrogen 26 mg/dl (9-20); Carbon Dioxide 26 mmol/L (22-30); Chloride 96 mmol/L (98-107); Estimated Creatinine Clearance 56 ml/min; Glucose 103 mg/dl (70-99); Potassium 3.9 mmol/L (3.5-5.1); Sodium 133 mmol/L (135-145); eGFR 51.77
[2024-02-22] MEDS: COZAAR 25 MG PO (07:56)
[2024-02-22] MEDS: PROSCAR 5 MG PO (07:56)
[2024-02-22] MEDS: ASPIR LOW (ENTERIC COATED) 81 MG PO (07:56)
[2024-02-22] MEDS: VITAMIN B-12 1000 MCG PO (07:57)
[2024-02-22] MEDS: ALDACTONE 25 MG PO (07:57)
[2024-02-22] MEDS: FOLVITE 1 MG PO (07:57)
[2024-02-22] MEDS: VITAMIN B1 200 MG PO (07:57)
[2024-02-22] MEDS: TRANDATE 300 MG PO ×3 (07:57→20:56)
[2024-02-22 11:00] LABS: Body Fluid pH 7.45
[2024-02-22 11:10] LABS: Body Fluid Mononuclear 48.9 %; Body Fluid Polymorphonuclear 51.1 %; Body Fluid WBC 3507 /CUMM
[2024-02-22 11:15] LABS: Body Fluid Second Tech BP
[2024-02-22 11:19] LABS: Body Fluid Glucose 101 mg/dl; Body Fluid LDH 214 U/L; Body Fluid Protein 3.9 g/dl
--- NOTE | 2024-02-22 11:40 | W.PN.UPDATE ---
Update Note
Progress Note Update
Hinton catheter draining well.
Cr at baseline (h/o CKD)
02/20 RBUS reviewed =>
1. Pronounced cortical thinning of each kidney, suggestive of medical renal disease.
2. Chronic mild hydronephrosis of the right kidney, unchanged compared to prior ultrasound.
3. Urinary bladder is decompressed by Hinton catheter. Echogenic debris is seen within the urinary bladder.
Acute urinary retention
Chronic incomplete emptying
H/o BPH
Stable mild right hydronephrosis
CKD 3a
Of note, patient was non-compliant w/ medical therapy for BPH and recommended urologic F/U prior to this admission.
- Maintain Hinton catheter on discharge
- F/U in 1 week for outpatient voiding trial
- Start tamsulosin 0.4 mg qhs
- Start finasteride 5 mg daily
D/w Dr. Arteaga.
--- NOTE | 2024-02-22 11:44 | W.PN.HOSP.TC ---
Addendum entered and electronically signed by Ruben Arteaga MD 02/22/24 12:01:
Per discussion with Dr. Manzanares patient is to be discharged with Hinton catheter. He will have to continue with Proscar and Flomax and follow-up with urology office for voiding trial in 1 week.
Original Note:
Today's Communication/Plan
-
Will discuss with nephrology regarding antihypertensive regimen
Echo noted
Unclear reason for pleural effusion. Needs to follow-up with pulmonary as outpatient
Add serum protein and LDH to calculate lights criteria
Will discuss with urology regarding the plan for discharge.
PT OT
Lasix
Assessment / Plan
Assessment / Plan
79-year-old male with lower extremity edema, hypertension
On examination patient awake alert
Feeling better
Cardiovascular system S1-S2 irregular,, Short systolic murmur at apex
Chest clear to auscultation
Bilateral lower extremity better neuroexam nonfocal
# Hypertensive urgency
Was briefly on Cardene drip
Continue spironolactone, labetalol, losartan
Nephrology consulted. May need to make adjustments to the above regimen.
Ultrasound-cortical thinning of each kidney suggesting medical renal disease. Chronic mild hydronephrosis of the right kidney unchanged. Urinary bladder is decompressed by Hinton catheter. Echogenic debris in the urinary bladder likely
representing hemorrhage
# Acute on chronic urinary retention
Enlarged prostate
Chronic bladder outlet obstruction suspected
Hinton catheter placed
Flomax started
Patient already on Proscar
Unclear if he was compliant with Proscar
Hematuria likely secondary to outlet obstruction
Urology evaluation appreciated
# Bilateral lower extremity edema
Possibly from chronically full bladder tube along with venous insufficiency
Echo -atrial valve opens normally. Mild MR, trace TR, pulmonary artery pressure 54 mm of Hg
Venous Dopplers negative for DVT
# Left-sided pleural effusion. 1200 mL of serosanguineous pleural fluid with thoracentesis.
Add LDH and protein to serum to calculate lights criteria
# Paroxysmal atrial fibrillation
Patient is on labetalol for rate control
He has declined and is still declining anticoagulation
# Chronic kidney disease stage III
# Daily alcohol use
2 martinis antibiotic
Withdrawal protocol
Thiamine supplementation
# History of asthma
# Obesity per BMI criteria
# DVT prophylaxis-SCDs
# Full code
Discussed with nursing at bedside
Discussed with pulmonary
Discussed with patient's family at bedside
Discussed with urology
D/W Nephrology
Anticipated Discharge: Within 24 hours
Subjective/Interval History
-
Date of Service: February 22, 2024
Objective Data
-
Labs:
Laboratory Results
02/22/24
04:18
WBC 12.4 H
Hgb 12.6 L
Hct 37.9 L
Plt Count 153
Sodium 133 L
Potassium 3.9
Chloride 96 L
Carbon Dioxide 26
BUN 26 H
Creatinine 1.4 H
Glucose 103 H
Calcium 9.0
Vital Signs:
Vital Signs
Temp Pulse Resp BP Pulse Ox
97.8 F 60 19 161/87 95
02/22/24 07:43 02/22/24 08:15 02/22/24 08:15 02/22/24 08:01 02/22/24 08:15
I&O
02/21/24 02/22/24 02/23/24
06:59 06:59 06:59
Intake Total 290.0 / 290.0 1020 / 1020
Output Total 4380 / 4680 1849 / 1849 150 / 150
Balance -4090.0 / -4390.0 -829 / -829 -150 / -150
[2024-02-22 12:44] LABS: LDH 268 U/L (120-246); Total Protein 6.7 g/dl (6.3-8.2)
--- NOTE | 2024-02-22 13:16 | W.PN.INTV ---
Documented by User: Alon Bhatti MD, Resident 02/22/24 14:51
Today's Communication / Plan
Recommendations
Hypertensive urgency resolved with labile blood pressure.
Continue tamsulosin, finasteride, and keep Hinton in place, likely discharge with outpatient urology follow-up.
Continue antihypertensives and consider discontinuing losartan at discharge given patient's DESTINY. Trend creatinine.
S/P diagnostic thoracentesis 02/22/2024 with 1200 cc pleural fluid; chemistries, culture and cytology pending.
Patient with A-fib refusing anticoagulation despite risk for stroke.
Assessment
-
Assessment / Plan
This is a 79-year-old male with past medical history of hypertension, A-fib, urinary retention who was admitted from the ED due to severe hypertension noted at the PCP and nephrology office. BP continues to be high despite administration of several
antihypertensives. He was treated with Cardene drip in the ED and a Hinton was placed which yielded 175 mL of bloody urine.
Overnight his blood pressure was normal but increased in the morning with SBP in the 160s, DBP> 90. Presents also with mild left chest discomfort, chest x-ray with left pleural effusion and consolidation confirmed on chest ultrasound.
Echocardiography 02/21/2024 unremarkable. Thoracentesis completed 02/22/2024 with symptomatic improvement of chest discomfort.
Impression:
Presentation with severe high blood pressure.
Hypertensive urgency
Acute renal insufficiency
CKD III with urinary retention
Baseline creatinine 1.5
Left chest discomforts with decreased breath sounds on the left.
Pleural effusion on chest x-ray confirmed on chest ultrasound.
Bilateral LE edema.
Medication noncompliance.
Conditions prior to admission:
Paroxysmal Atrial Fibrillation
Essential Hypertension
CKD Stage III
History of BPH
Alcohol use disorder
Plan:
Presentation with severe high blood pressure.
-Hypertensive urgency most likely due to medication noncompliance. Other likely etiologies include sleep apnea (patient denies) given normal posterior oropharynx, CHF.
-BP trending down on losartan, spironolactone and labetalol; will continue medications.
-Will most likely hold losartan given patient's CKD.
-Will keep Hinton in place as this could be contributing to his high blood pressure.
-Consider outpatient sleep study
-Continue to monitor BP, I&O's and daily weights.
Acute renal insufficiency.
-CKD stage III with urinary retention, hematuria and right hydronephrosis.
-Baseline creatinine of 1.4�1.5. Patient is within baseline.
-Most likely contributing to high blood pressure.
-Will most likely discharge on Hinton.
-Continue tamsulosin.
-Continue finasteride.
-Consider holding losartan on discharge given patient's DESTINY.
-Urology and nephrology following.
Bilateral LE edema.
-2+ bilateral LE edema.
-Most likely due to heart failure given patient's presentation with exertional dyspnea.
-Echo 02/21/2024 unremarkable
-Venous Doppler negative for DVT.
-Continue po Lasix with plans to discharge on Lasix.
-Discussed at length with patient about medication compliance.
Left chest discomfort.
-Patient with decreased breath sounds on the left without egophony.
-Pleural effusion on chest x-ray confirmed on chest ultrasound.
-Diagnostic thoracentesis 02/22/2024 with 1200 cc serosanguineous pleural fluid and symptomatic improvement.
-Pleural fluid culture and chemistry pending.
-Pleural fluid cytology with preliminary WBCs with no visible organisms.
Medication noncompliance.
-Patient noncompliant with antihypertensive, tamsulosin and finasteride and urology follow-up.
-Educated patient on the importance of medical follow-ups and medication compliance.
-Patient will benefit from longer acting medications given his lack of compliance.
Paroxysmal A-fib:
-Rate controlled on labetalol.
-Discussed at length with patient about the benefits of anticoagulation given his A-fib.
-Patient is considering starting anticoagulation.
Alcohol use disorder:
-Daily alcohol use.
-Alcohol withdrawal protocol.
-Thiamine supplementation.
DVT proph: SCDs
Subjective Dataa
Subjective Data
Date of Service:
Date of Service: February 22, 2024
Chief Complaint: [employer] Follow Up
Review of Systems
General: Other (Reports none)
HEENT: Other (Reports none)
Cardiopulmonary: Dyspnea on Exertion and Edema (Bilateral +2 LE edema)
GI: Other (Reports none)
Neuro: Other (Denies headache, dizziness, weakness.)
Genitourinary: Hinton
Objective Data
Data Reviewed
Vital Signs / I&O / Oxygen:
Vital Signs
Temp Pulse Resp BP Pulse Ox
97.9 F 60 19 161/87 95
02/22/24 12:00 02/22/24 08:15 02/22/24 08:15 02/22/24 08:01 02/22/24 08:15
Intake and Output
02/21/24 02/22/24 02/23/24
06:59 06:59 06:59
Intake Total 290.0 / 290.0 1020 / 1020
Output Total 4380 / 4680 1849 / 1849 150 / 150
Balance -4090.0 / -4390.0 -829 / -829 -150 / -150
SaO2 95
Nasal Cannula flow liters per 2
minute
Physical Exam
General: Comfortable and Other (Narrow posterior oropharynx representing possible sleep apnea.)
HEENT: Normocephalic and Anicteric
Cardiovascular: S1-S2, Irregular Rhythm and Peripheral Edema
Respiratory: Clear and Non-Labored Respirations
GI: Soft, Non Distended, Non Tender and Normal Bowel Sounds
Neurology: Awake, Alert and AO x 3
Skin: Warm, Dry and Good Color
Labs/Micro/Reports
Lab Data
02/22/24 04:18
02/22/24 04:18
Microbiology
02/22/24 10:00 Pleural Fluid Gram Stain - Preliminary

Documented by User: Colleen Gamboa MD 02/22/24 16:09
Today's Communication / Plan
Recommendations
Hypertensive urgency resolved with labile blood pressure.
Continue tamsulosin, finasteride, and keep Hinton in place, likely discharge with outpatient urology follow-up.
Continue antihypertensives and monitor blood pressure.
S/P successful diagnostic thoracentesis 02/22/2024 with 1200 cc pleural fluid, exudative with LDH and cell count.
Pulmonary follow-up is recommended, information left in chart
Patient considering anticoagulation, risk and benefits of anticoagulation on A-fib discussed with patient.
Assessment
-
Assessment / Plan
This is a 79-year-old male with past medical history of hypertension, A-fib, urinary retention who was admitted from the ED due to severe hypertension noted at the PCP and nephrology office. BP continues to be high despite administration of several
antihypertensives. He was treated with Cardene drip in the ED and a Hinton was placed which yielded 175 mL of bloody urine.
Overnight his blood pressure was normal but increased in the morning with SBP in the 160s, DBP> 90. Presents also with mild left chest discomfort, chest x-ray with left pleural effusion and consolidation confirmed on chest ultrasound.
Echocardiography 02/21/2024 unremarkable. Thoracentesis completed 02/22/2024 with symptomatic improvement of chest discomfort.
Impression:
Presentation with severe high blood pressure.
Hypertensive urgency
Acute renal insufficiency
CKD III with urinary retention
Baseline creatinine 1.5
Left chest discomforts with decreased breath sounds on the left.
Pleural effusion on chest x-ray confirmed on chest ultrasound.
Bilateral LE edema.
Medication noncompliance.
Conditions prior to admission:
Paroxysmal Atrial Fibrillation
Essential Hypertension
CKD Stage III
History of BPH
Alcohol use disorder
Plan:
Presentation with severe high blood pressure.
-Hypertensive urgency most likely due to medication noncompliance. Other likely etiologies include sleep apnea (patient denies) given normal posterior oropharynx, CHF.
-BP trending down on losartan, spironolactone and labetalol; will continue medications.
-Follow creatinine while on losartan
-Patient with urinary retention requiring Hinton catheter at presentation. Unclear whether this would have contributed to hypertension
-Consider outpatient sleep study
-Continue to monitor BP, I&O's and daily weights.
Acute renal insufficiency.
-CKD stage III with urinary retention, hematuria and right hydronephrosis.
-Baseline creatinine of 1.4�1.5. Patient is within baseline.
-Most likely contributing to high blood pressure.
-Will most likely need Hinton catheter upon discharge
-Continue tamsulosin.
-Continue finasteride.
-Defer antihypertensive regimen to nephrology
-Urology and nephrology following.
Bilateral LE edema.
-2+ bilateral LE edema, improved.
-Most likely due to heart failure given patient's presentation with exertional dyspnea.
-Echo 02/21/2024 unremarkable
-Venous Doppler negative for DVT.
-Continue po Lasix with plans to discharge on Lasix.
-Discussed at length with patient about medication compliance.
Left chest discomfort.
-Patient with decreased breath sounds on the left without egophony.
-Pleural effusion on chest x-ray confirmed on chest ultrasound.
-Diagnostic thoracentesis 02/22/2024 with 1200 cc serosanguineous pleural fluid and symptomatic improvement.
Fluid consistent with exudate by white count, and LDH. No evidence of recurrence on repeat imaging
-Pleural fluid culture and cytology pending.
-Differential not helpful
-Given patient's significant smoking history, he is at risk for lung cancer. If fluid recurs, will require repeat thoracentesis, repeat cytological analysis and will consider CT chest postthoracentesis. This can be done as an outpatient
Medication noncompliance.
-Patient noncompliant with antihypertensive, tamsulosin and finasteride and urology follow-up.
-Educated patient on the importance of medical follow-ups and medication compliance.
-Patient will benefit from longer acting medications given his lack of compliance.
Paroxysmal A-fib:
-Rate controlled on labetalol.
-Discussed at length with patient about the benefits of anticoagulation given his A-fib.
-Patient is considering starting anticoagulation.Educated on risks and ramifications of anticoagulation and lack of anticoagulation with atrial fibrillation
Alcohol use disorder:
-Daily alcohol use.
-Alcohol withdrawal protocol.
-Thiamine supplementation.
DVT proph: SCDs

The above was reviewed and agree. Patient seen and examined independently by myself and with resident.
Patient much improved after left thoracentesis earlier this morning. Denies any chest pain, cough, shortness of breath. Lower extremity and has improved.
Chest exam with better air movement at the left base. Irregular rhythm noted
Reviewed pleural fluid studies. Appears to be exudative by white count and high LDH.
Hinton catheter remains in place
Moving forward
He is objectively and subjectively improved.
Given his smoking history, will need to follow-up for recurrence of his left oral effusion. Will defer need for CT chest or repeat thoracentesis as outpatient
Reviewed urology correspondence. Hinton catheter will continue patient transferred to telemetry.
Pulmonary will continue to follow
Patient does have outpatient follow-up with pulmonary in the next month ([facility])
Subjective Dataa
Subjective Data
Subjective:
Patient is feeling much improved. Denies shortness of breath, chest pain, nausea. Sitting in chair. Daughter at bedside. Patient underwent thoracentesis this morning, did feel improved post thoracentesis. Did have some mild chest discomfort
during thoracentesis but this is since resolved
Objective Data
Physical Exam
General: Other (Narrow posterior oropharynx with Mallampati score class III representing possible sleep apnea.)
--- NOTE | 2024-02-22 13:45 | CM ---
CM following re: discharge planning.
Reviewed pt's chart, met with pt and pt's daughter Katherine at bedside.
According to MD pt most likely will be ready for discharge within 24 hours and pt will have Hinton catheter upon the discharge for a week. Pt is aware, expressed his positive feelings regarding upcoming discharge. IMM reviewed placed in chart, pt has
a copy. Pt is aware he will have Hinton catheter and he stated he had it before, knows how to carte and pt stated he does not need any after care VN services.
D/C plan: home with anticipated no needs. Daughter to transport at discharge.
CM will follow with discharge planning updates as needed.
[2024-02-22] MEDS: REFRESH EYE DROPS (PF) 1 DROPS OPHTH (14:05)
[2024-02-22] MEDS: TYLENOL 650 MG PO (16:31)
[2024-02-22] MEDS: LOVENOX 40 MG SC (17:28)
[2024-02-22] MEDS: LASIX 40 MG PO (17:28)
--- NOTE | 2024-02-22 17:49 | TRANSFER ---
report called to RN for room 419-2. pt to be transported via w/c with tele and Hinton catheter. Pain relieved with Tylenol.
--- NOTE | 2024-02-22 18:15 | W.PN.NEPH.PH ---
Today's Communication / Plan
-
see plan
Assessment/Plan
-
Assessment:
PAfib
HTN
CKD Stage 3B-baseline cr 1.4-1.5
BPH
Alcohol abuse disorder
Plan:
- presented with hypertensive emergency, improved after Cm placement
- current antihypertensive regimen: labetalol 300mg PO TID, losartan 25mg daily, spironolactone 25mg daily, tamsulosin 0.4mg
-BP are still seem sub optimal however improving post thoracentesis
will monitor BP still before adjusting meds
lasix again today might help vol mediated HTN too, BNP high this admit
check U pCR, 3+alb in UA- was not present gbefore
OUt pt nanda level was at 12 and renin was low <0.167 suggest possible hyperaldo state hence moving forward titrate up Aldactone
Cr is at baseline, keep cm for retention and f/u out pt
d/w pt and nursing
-
-
Date of Service: February 22, 2024
CC / HPI / ROS
-
Chief Complaint:
CKD and HTN
History of Present Illness:
cr stablea t 1.4
BP labile, s/o left thoracentesis of 1.2lit today
no fever
Review of Systems:
no cp, feels better post tap from lung
edema is improving
no n/v
Labs
-
Labs:
WBC 12.4 10^3/uL (4.8-10.8) H 02/22/24 04:18
RBC 4.60 10^6/uL (4.70-6.10) L 02/22/24 04:18
Hgb 12.6 g/dL (13.0-18.0) L 02/22/24 04:18
Hct 37.9 % (39.0-52.0) L 02/22/24 04:18
Plt Count 153 10^3/uL (130-400) 02/22/24 04:18
Sodium 133 mmol/L (135-145) L 02/22/24 04:18
Potassium 3.9 mmol/L (3.5-5.1) 02/22/24 04:18
Chloride 96 mmol/L (98-107) L 02/22/24 04:18
Carbon Dioxide 26 mmol/L (22-30) 02/22/24 04:18
BUN 26 mg/dl (9-20) H 02/22/24 04:18
Creatinine 1.4 mg/dL (0.7-1.3) H 02/22/24 04:18
eGFR 51.77 02/22/24 04:18
Glucose 103 mg/dl (70-99) H 02/22/24 04:18
Calcium 9.0 mg/dl (8.4-10.2) 02/22/24 04:18
Phosphorus 4.2 mg/dl (2.5-4.5) 02/21/24 04:10
Nbz-H-Gzjhghaprnh Pept 2630 pg/ml 02/20/24 13:19
Albumin 4.8 g/dl (3.5-5.0) 02/20/24 13:19
Physical Exam
-
Vital Signs:
Vital Signs
Temp Pulse Resp BP Pulse Ox
98.2 F 69 20 156/80 94
02/22/24 15:12 02/22/24 17:30 02/22/24 09:00 02/22/24 17:28 02/22/24 09:00
Cardiovascular:: Regular rate and rhythm
Respiratory:: Bilateral: Coarse (left lung)
Lung Excursion:: Normal
Abdomen:: Nontender and Soft
Extremity Edema:: +1: Bilateral:
Cm Catheter: Yes
[2024-02-22] MEDS: FLOMAX 0.400000000000000022 MG PO (20:55)
[2024-02-22 22:27] LABS: Protein/creatinine Ratio 0.5; Urine Protein 22 mg/dl
[2024-02-23 04:05] VITALS: BP 132/87
[2024-02-23 05:10] VITALS: BMI 31.7
[2024-02-23 07:30] VITALS: BP 137/69
[2024-02-23 08:36] LABS: Hematocrit 37.7 % (39.0-52.0); Hemoglobin 12.9 g/dL (13.0-18.0); Mean Corp Hgb Conc. 34.2 g/dL (33.0-37.0); Mean Corpuscular Hgb 27.6 pg (27.0-31.0); Mean Corpuscular Volume 80.6 fL (80.0-94.0); Mean Platelet Volume 11.7 fL (7.4-10.4); Platelet Count 186 10^3/uL (130-400); Red Blood Cell Count 4.68 10^6/uL (4.70-6.10); Red Cell Dist. Width 15.1 % (11.5-14.5); White Blood Cell Count 11.5 10^3/uL (4.8-10.8)
[2024-02-23] MEDS: VITAMIN B-12 1000 MCG PO (08:38)
[2024-02-23] MEDS: LASIX 40 MG PO (08:38)
[2024-02-23] MEDS: ASPIR LOW (ENTERIC COATED) 81 MG PO (08:38)
[2024-02-23] MEDS: PROSCAR 5 MG PO (08:38)
[2024-02-23] MEDS: TRANDATE 300 MG PO ×2 (08:38→15:50)
[2024-02-23] MEDS: ALDACTONE 25 MG PO (08:38)
[2024-02-23] MEDS: COZAAR 25 MG PO (08:38)
[2024-02-23] MEDS: FOLVITE 1 MG PO (08:38)
[2024-02-23] MEDS: VITAMIN B1 200 MG PO (08:38)
[2024-02-23 09:29] LABS: Blood Urea Nitrogen 26 mg/dl (9-20); Carbon Dioxide 27 mmol/L (22-30); Chloride 98 mmol/L (98-107); Estimated Creatinine Clearance 52 ml/min; Glucose 101 mg/dl (70-99); Potassium 4.3 mmol/L (3.5-5.1); Sodium 132 mmol/L (135-145); eGFR 47.65
--- NOTE | 2024-02-23 10:06 | W.PN.PUL3 ---
Today's Communication / Plan
-
Doing well post thora, remains stable on room air
HTN management per team
We discussed outpatient FU, sleep study as well, he was agreeable to HST
Discharge planning per team
Assessment
-
This is a 79-year-old male with past medical history of hypertension, A-fib, urinary retention who was admitted from the ED due to severe hypertension noted at the PCP and nephrology office. BP continues to be high despite administration of several
antihypertensives. He was treated with Cardene drip in the ED and a Hinton was placed which yielded 175 mL of bloody urine.
Overnight his blood pressure was normal but increased in the morning with SBP in the 160s, DBP> 90. Presents also with mild left chest discomfort, chest x-ray with left pleural effusion and consolidation confirmed on chest ultrasound.
Echocardiography 02/21/2024 unremarkable. Thoracentesis completed 02/22/2024 with symptomatic improvement of chest discomfort.
Hypertensive urgency
Acute heart failure pEF
Acute renal insufficiency
CKD III with urinary retention
Baseline creatinine 1.5
Pleural effusion s/p thoracentesis 02/22/24
Bilateral LE edema
Medication noncompliance
Conditions prior to admission:
Paroxysmal Atrial Fibrillation
Essential Hypertension
CKD Stage III
History of BPH
Alcohol use disorder
Plan:
Presentation with severe high blood pressure.
Hypertensive urgency most likely due to medication noncompliance.
Other likely etiologies include sleep apnea (patient denies) given normal posterior oropharynx, CHF.
BP trending down on losartan, spironolactone and labetalol, continue medications.
Nephrology management for HTN
Continue to monitor BP, I&O's and daily weights.
Acute renal insufficiency.
CKD stage III with urinary retention, hematuria and right hydronephrosis.
Baseline creatinine of 1.4�1.5. Patient is within baseline.
Bilateral LE edema.
Most likely due to heart failure given patient's presentation with exertional dyspnea.
Echo 02/21/2024 unremarkable
Venous Doppler negative for DVT.
Continue po Lasix with plans to discharge on Lasix.
Discussed at length with patient about medication compliance/fluid restricted diet/daily weights
Pleural effusion on chest x-ray confirmed on chest ultrasound.
Diagnostic thoracentesis 02/22/2024 with 1200 cc serosanguineous pleural fluid and symptomatic improvement.
Pleural fluid culture negative, chemistry suggestive of exudate, can be pseudo-exudative while on diuretics
Pleural fluid cytology pending
Can repeat imaging as needed
Paroxysmal A-fib, Rate controlled on labetalol.
Alcohol use disorder, reports daily alcohol use.
Thiamine/folate
Does not appear in w/d, monitor
Discharge planning per team
Outpatient sleep study discussed with patient, has appt with our office already set up
Diagnostic Data
All relevant imaging reviewed.
Subjective Data
-
Date of Service:
Date of Service: February 23, 2024
Chief Complaint: Pulmonary Follow Up
Subjective:
doing well today, stable on room air
no new complaints
sitting in chair, comfortable
Objective Data
Data Reviewed
Vital Signs / I&O / Oxygen:
Vital Signs
Temp Pulse Resp BP Pulse Ox
99.6 F 82 20 137/69 97
02/23/24 07:30 02/23/24 07:30 02/23/24 07:30 02/23/24 07:30 02/23/24 07:30
Intake and Output
02/22/24 02/23/24 02/24/24
06:59 06:59 06:59
Intake Total 1020 / 1020 360 / 360
Output Total 1849 / 1849 900 / 900
Balance -829 / -829 -540 / -540
SaO2 97
Nasal Cannula flow liters per 2
minute
Physical Exam
General: Comfortable and Other (NAD)
HEENT: Normocephalic, Anicteric and Moist Mucous Membranes
Cardiovascular: S1-S2 and Regular Rhythm
Respiratory: Clear and Non-Labored Respirations
GI: Soft, Non Distended and Non Tender
Neurology: Awake, Alert, Oriented, AO x 3 and No Motor Deficits
Skin: Warm, Dry and Good Color
Labs/Micro/Reports
Lab Data
02/23/24 08:18
02/23/24 08:18
Microbiology
02/22/24 10:00 Pleural Fluid Body Fluid Culture - Preliminary
No Growth After 18-24 Hours
02/22/24 10:00 Pleural Fluid Gram Stain - Preliminary
[2024-02-23 11:05] VITALS: BP 124/65; PULSE 69; O2SAT 96
[2024-02-23 11:10] VITALS: BP 124/65; PULSE 73; O2SAT 96
[2024-02-23 11:50] VITALS: BP 117/62
--- NOTE | 2024-02-23 11:56 | CM ---
Patient seen bedside.
Again offered VN if patient goes home with Hinton catheter, patient declined.
IMM completed.
patient [id number] of CM availability should needs arise.
Family will transport.
Plan: home no needs.
--- NOTE | 2024-02-23 14:45 | W.PN.HOSP.TC ---
Today's Communication/Plan
-
Discharge
Assessment / Plan
Assessment / Plan
79-year-old male with lower extremity edema, hypertension
On examination patient awake alert
Feeling better
Cardiovascular system S1-S2 irregular,, Short systolic murmur at apex
Chest clear to auscultation
Bilateral lower extremity much better
neuroexam nonfocal
# Hypertensive urgency
Was briefly on Cardene drip
Continue spironolactone, labetalol, losartan
Nephrology consulted.
Ultrasound-cortical thinning of each kidney suggesting medical renal disease. Chronic mild hydronephrosis of the right kidney unchanged. Urinary bladder is decompressed by Hinton catheter. Echogenic debris in the urinary bladder likely
representing hemorrhage
# Acute on chronic urinary retention
Enlarged prostate
Chronic bladder outlet obstruction suspected
Hinton catheter placed
Flomax started
Patient already on Proscar
Unclear if he was compliant with Proscar
Hematuria likely secondary to outlet obstruction
Urology evaluation appreciated
recommended discharge with Hinton and F/U with
Patient states that he has had a Hinton catheter in the past
Leg bag to be given
# Bilateral lower extremity edema
Possibly from chronically full bladder tube along with venous insufficiency
Echo -atrial valve opens normally. Mild MR, trace TR, pulmonary artery pressure 54 mm of Hg
Venous Dopplers negative for DVT
# Left-sided pleural effusion. 1200 mL of serosanguineous pleural fluid with thoracentesis.
Exudate per criteria
Seen by pulmonary
Outpatient pulmonary follow-up recommended to follow on this and also to evaluate for sleep apnea. Patient is aware
# Paroxysmal atrial fibrillation
Patient is on labetalol for rate control
He has declined and is still declining anticoagulation
# Chronic kidney disease stage III
# Daily alcohol use
2 martinis antibiotic
Withdrawal protocol
Thiamine supplementation
# History of asthma
# Obesity per BMI criteria
# DVT prophylaxis-SCDs
# Full code
Discussed with nursing at bedside
Discussed with pulmonary at bedside
Discussed with nephrology
Discussed with case management- Pt declining VN
Patient has a blood pressure monitor at home and is willing to monitor blood pressure. He admits to being noncompliant with medicines at home
He is aware about need for compliance with medicines, checking blood pressure if he can, follow-up with urology, follow-up with nephrology, follow-up with pulmonary.
04 due to family. Patient stated that 1 daughter is in school right now, son is in [place], other daughter had a baby yesterday. He is willing to update them. He has my card in case family's questions to reach me.
Discharge coordination time 40 minutes
Anticipated Discharge: Today
Subjective/Interval History
-
Date of Service: February 23, 2024
Objective Data
-
Labs:
Laboratory Results
02/23/24
08:18
WBC 11.5 H
Hgb 12.9 L
Hct 37.7 L
Plt Count 186 D
Sodium 132 L
Potassium 4.3
Chloride 98
Carbon Dioxide 27
BUN 26 H
Creatinine 1.5 H
Glucose 101 H
Calcium 9.0
Vital Signs:
Vital Signs
Temp Pulse Resp BP Pulse Ox
98.0 F 80 22 117/62 96
02/23/24 11:50 02/23/24 11:50 02/23/24 11:50 02/23/24 11:50 02/23/24 11:50
I&O
02/22/24 02/23/24 02/24/24
06:59 06:59 06:59
Intake Total 1020 / 1020 360 / 360
Output Total 1849 / 1849 900 / 900
Balance -829 / -829 -540 / -540
--- NOTE | 2024-02-23 14:53 | W.DS.TRANS ---
Addendum entered and electronically signed by Ruben Arteaga MD 02/23/24 15:26:
Dictation- [id number]
Original Note:
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
-
Discharge Instructions:
Discharge Diagnosis/Procedures Hypertensive urgency, poorly controlled
hypertension, chronic urinary retention, lower
extremity edema, left-sided pleural effusion
status postthoracentesis, paroxysmal atrial
fibrillation, chronic kidney disease, history of
asthma, enlarged prostate
Diet 2 Gram Sodium
Activity As tolerated
Driving Restrictions As prior to admission
Instructions:
Stand-Alone Forms:
Changes to Home Medications: Yes
Discharge Medications:
DC Medications w/original date entered in ipsy
acetaminophen 500 mg tablet (Tylenol Extra Strength) 1,000 mg PO DAILYPRN PRN severe pain 02/20/24
acetaminophen 500 mg tablet (Tylenol Extra Strength) 500 mg PO DAILYPRN PRN mild pain 02/20/24
finasteride 5 mg tablet 5 mg PO DAILY Urinary Issue 02/20/24
folic acid 800 mcg tablet 0.8 mg PO DAILY Supplement 02/20/24
labetalol 300 mg tablet 300 mg PO TID Blood Pressure 02/20/24
losartan 25 mg tablet 25 mg PO DAILY Blood Pressure 02/20/24
magnesium 250 mg tablet 250 mg PO DAILY Supplement 02/20/24
spironolactone 25 mg tablet 25 mg PO DAILY Blood Pressure 02/20/24
aspirin 81 mg tablet,delayed release 81 mg PO DAILY Blood clot prevention/tx #90 tabs 02/23/24
cyanocobalamin (vitamin B-12) 1,000 mcg capsule 1,000 mcg PO DAILY Supplement #90 caps 02/23/24
furosemide 40 mg tablet 40 mg PO DAILY Fluid retention/Swelling #30 tabs 02/23/24
tamsulosin 0.4 mg capsule 0.4 mg PO HS Urinary issue #30 caps 02/23/24
thiamine HCl (vitamin B1) 100 mg tablet 100 mg PO DAILY Supplement #0 tabs 02/23/24
Home Medication Changes
new
furosemide 40 mg tablet 40 mg PO DAILY Fluid retention/Swelling #30 tabs 02/23/24
tamsulosin 0.4 mg capsule 0.4 mg PO HS Urinary issue #30 caps 02/23/24
thiamine HCl (vitamin B1) 100 mg tablet 100 mg PO DAILY Supplement #0 tabs 02/23/24
Pending Results: Yes
Additional Pending Results:
pleural fluid pathology
[2024-02-23 15:59] VITALS: BP 151/80
== END 2024-02-23 16:18 | disposition home or self-care (01) | DRG 187 ==
LOC: 4 WEST ACU 19:58
PROVIDERS: Internal Medicine; Nurse Practitioner Family; Physician Assistant Medical; Radiology Diagnostic Radiology; ADMITTING PHYSICIAN Hospitalist; CONSULT PHYSICIAN Internal Medicine Critical Care Medicine; CONSULT PHYSICIAN Student in an Organized Health Care Education/Training Program; EMERGENCY PHYSICIAN Emergency Medicine; FAMILY PHYSICIAN Nurse Practitioner Family
PROC: 0T9B70Z Drainage of Bladder with Drainage Device, Via Natural or Artificial Opening (ICD-10-PCS; 2024-02-20)
PROC: 0W9B3ZZ Drainage of Left Pleural Cavity, Percutaneous Approach (ICD-10-PCS; 2024-02-22)
DX: J90 Pleural effusion, not elsewhere classified (principal); I16.1 Hypertensive emergency; N13.30 Unspecified hydronephrosis; I12.9 Hypertensive chronic kidney disease with stage 1 through stage 4 chronic kidney disease, or unspecified chronic kidney disease; N18.31 Chronic kidney disease, stage 3a; I48.0 Paroxysmal atrial fibrillation; J45.909 Unspecified asthma, uncomplicated; N40.0 Benign prostatic hyperplasia without lower urinary tract symptoms; E66.9 Obesity, unspecified; Z91.119 Patient's noncompliance with dietary regimen due to unspecified reason; Z68.31 Body mass index [BMI] 31.0-31.9, adult; Z91.148 Patient's other noncompliance with medication regimen for other reason; Z79.82 Long term (current) use of aspirin
CPT/HCPCS: 88305; 32555; 51702; 51798; 71045; 71046; 76604; 76770; 80048; 80053; 80061; 81003; 81015; 82533; 82570; 82945; 83036; 83615; 83735; 83880; 83986; 84100; 84155; 84156; 84157; 84443; 84484; 85025; 85027; 85610; 85730; 87015; 87070; 87205; 88112; 88341; 88342; 89051; 93005; 93306; 93970; 96374; 96375; 96376; 97162; 97166; 99285; C1769

== ENCOUNTER → 2024-04-03 10:08 | Outpatient (REF) | payer MEDICARE, OTHER, SELFPAY | LOC: HWRAD 10:08 | PROVIDERS: ATTENDING PHYSICIAN Internal Medicine Critical Care Medicine; FAMILY PHYSICIAN Nurse Practitioner Family | DX: J90 Pleural effusion, not elsewhere classified (principal); R06.02 Shortness of breath | CPT/HCPCS: 71046 ==

== ENCOUNTER 2024-04-09 11:58 | Emergency (ER) | payer MEDICARE, OTHER, SELFPAY ==
--- NOTE | 2024-04-09 12:24 | ED.GENMED ---
History of Present Illness
General
Chief Complaint: Catheter/Tube Problem
Source: patient
Exam Limitations: none
Time Seen by Provider: 04/09/24 12:03
Nursing documentation reviewed up to this point in time: agreed with
Travel History
Have you had any contact with someone who has COVID-19?: No
Do you have any symptoms of coronavirus? Fever > 100 degrees, chills, cough, shortness of breath, sore throat, loss of taste or smell, muscle aches, or headache?: No
History of Present Illness
History of Present Illness:
79-year-old male presents emergency department due to his Cm catheter not draining. He woke up this morning and it was not draining, his Cm bag was only half full. He then noticed discomfort. No fevers.
Past History
Past History
ED Past Medical History: HTN
ED Past Surgical History: None
Patient has exhibited threatening behavior?: No
PSI?: No
Social History
Tobacco: Non-smoker
Alcohol: Occasional
Personal:
Living: with family
Employment: Retired
Review of Systems
Review of Systems
Allergies reviewed?: Yes
All Other Systems: Not applicable
Constitutional: Reports no symptoms
EENT: Reports no symptoms
Respiratory: Reports no symptoms
Cardiac: Reports no symptoms
ABD/GI: Reports no symptoms
: Reports difficulty voiding
Musculoskeletal: Reports no symptoms
Skin: Reports no symptoms
Neurological: Reports no symptoms
Endocrine: Reports no symptoms
Hematologic/Lymphatic: Reports no symptoms
Psychiatric: Reports no symptoms
Phy Exam
Physical Exam
Physical Exam:
Physical Exam
General: no apparent distress, not acutely ill
Neck: supple. no meningeal signs. normal posterior pharynx
Heart: equal radial pulses.
HEENT: EOMI
Lungs: no acute respiratory distress.
Abdomen: normal bowel sounds. not tender. no CVAT
: cm cath not draining, new cm in place, draining
Neuro: alert and oriented. no focal neurological deficits
Skin: no rash
Psychiatric: well kept. interactive and cooperative
Extremities: no edema. no calf tenderness. negative homans. good distal pulses
Course
Orders/Labs/Results
Orders:
Orders
04/09/24 12:19
Urine Culture Reflexed from UA [Urinalysis Reflex To Culture] Urgent
Date Specimen was Collected: 04/09/24
Time Specimen was Collected: 12:18
Urine Microscopic Reflex Cult Urgent
Urine Culture Urgent
JUSTYN Source: U
Specimen Description:
Date Specimen was Collected: 04/09/24
Time Specimen was Collected: 12:18
04/09/24 15:04
Cephalexin Monohydrate [Keflex] 500 mg PO NOW STA
Abnormal Lab Results
04/09/24
12:19
Ur Occult Blood Reflex 4+ A
(Negative)
Urine Nitrite (Reflex) Positive A
(Negative)
Leukocyte Esterase Rfl 2+ A
(Negative)
Urine RBC 30-40 A /HPF
(0-2)
Urine WBC (Reflex) 11-15 A /HPF
(0-5)
Urine Bacteria (Reflex) Moderate A
(Negative)
Urine Albumin (Reflex) 3+ A
(Neg - Trace)
Vital Signs
Initial and Last Documented VS:
Initial Vital Signs
Temp Pulse Resp Pulse Ox
98.6 F 80 20 97
04/09/24 12:00 04/09/24 12:00 04/09/24 12:00 04/09/24 12:00
Last Documented Vital Signs
Temp Pulse Resp BP Pulse Ox
98.6 F 82 18 168/79 97
04/09/24 12:00 04/09/24 12:47 04/09/24 12:47 04/09/24 12:47 04/09/24 12:47
MDM/Problems Addressed
Differential Diagnosis Includes:
UTI, urinary retention
MDM/Problems Addressed:
79 yo male with UTI and urinary retention. Cm changed, improved. F/u with primary care, urology. Keflex prescribed. Return precautions given.
Chronic conditions affecting care: HTN
Acute Exacerbation and/or Progression of Chronic Illness: HTN and Other (prostate hypertrophy)
*Pulse Oximetry
Patient hypoxic: no
*EKG
Interpreted by ED Provider?: NA
*Pump Runner Interpretation
Rate: Pump Runner- N/A
*Critical Care Note
Total Time (30-74mins, 75-104mins- exclusive of procedures): Not Applicable
Data Reviewed
Review of Other/Old Records Reveals: Labs (prior urine culture positive)
Source: records
Patient Management
Social determinants of health affecting care: Living situation
Escalation/DeEscalation of care consider admission/obs:
admit not indicated
ED Attending Note
-
Portions of this chart may have been created with voice recognition software.� Occasional wrong word or��sound alike� substitutions may have occurred due to the inherent limitations of voice recognition software.
Discharge Plan
Departure
Patient Disposition: Home (Routine Discharge)
Date of Disposition: 04/09/24
Time of Disposition: 15:01
Patient with high blood pressure during this ER visit?: Yes
Condition: Good
Discharge Problem:
Urinary retention, UTI (urinary tract infection)
Instructions: How to Care for Your Cm Catheter, Male, Urinary Tract Infection, Adult ED, BLOOD PRESSURE
Prescriptions:
New
cephalexin 500 mg capsule
500 mg PO BID 7 Days Qty: 14 0RF
No Action
spironolactone 25 mg Tablet
25 mg PO DAILY
losartan 25 mg Tablet
25 mg PO DAILY
magnesium 250 mg Tablet
250 mg PO DAILY
labetalol 300 mg Tablet
300 mg PO TID
finasteride 5 mg Tablet
5 mg PO DAILY
acetaminophen [Tylenol Extra Strength] 500 mg Tablet
500 mg PO DAILYPRN PRN (Reason: mild pain)
acetaminophen [Tylenol Extra Strength] 500 mg Tablet
1,000 mg PO DAILYPRN PRN (Reason: severe pain)
folic acid 800 mcg Tablet
0.8 mg PO DAILY
furosemide 40 mg Tablet
40 mg PO DAILY Qty: 30 0RF
thiamine HCl (vitamin B1) 100 mg Tablet
100 mg PO DAILY Qty: 0 0RF
tamsulosin 0.4 mg Capsule
0.4 mg PO HS Qty: 30 0RF
aspirin 81 mg Tablet,Delayed Release (Dr/Ec)
81 mg PO DAILY Qty: 90 0RF
cyanocobalamin (vitamin B-12) 1,000 mcg capsule
1,000 mcg PO DAILY Qty: 90 0RF
Referrals:
Sotero Polk MD [Active] - Call in 1-3 days for appt
Neo Can CRNP [Family Provider] -
Interventions
Interventions:
*Risk Screen - Suicide Last Done: 04/09/24 12:04
*General Assessment Last Done: 04/09/24 12:04
*Neglect/Abuse Screening Last Done: 04/09/24 12:04
ED- Fall Risk Assessment Last Done: 04/09/24 12:04
ED-Male Genitourinary Assessment Last Done: 04/09/24 12:04
Discharge Date and Time
Print Language: UKRAINIAN
[2024-04-09 12:47] VITALS: BP 168/79
[2024-04-09 13:21] LABS: Urine Albumin 3+ (Neg - Trace); Urine Bilirubin Negative (Negative); Urine Character Very Cloudy (Clear); Urine Color Yellow; Urine Glucose Negative (Negative); Urine Ketone Negative (Negative); Urine Leukocyte 2+ (Negative); Urine Nitrite Positive (Negative); Urine Occult Blood 4+ (Negative); Urine Specific Gravity 1.015 (<1.030); Urine Urobilinogen Negative (Neg - 1+)
[2024-04-09 13:34] LABS: Urine Squamous Cell 0-2 /LPF (Few)
[2024-04-09 13:35] LABS: Urine Calcium Oxalate Crystals Seen; Urine Red Blood Cell 30-40 /HPF (0-2)
[2024-04-09 13:36] LABS: Urine Bacteria Moderate (Negative)
[2024-04-09 15:18] VITALS: BP 202/106
[2024-04-09 16:02] VITALS: BP 233/90
[2024-04-09] MEDS: TRANDATE 300 MG PO (16:03)
[2024-04-09] MEDS: KEFLEX 500 MG PO (16:03)
[2024-04-09 16:32] VITALS: BP 198/92
== END 2024-04-09 16:48 | disposition home or self-care (01) ==
LOC: EMR 11:58
PROVIDERS: EMERGENCY PHYSICIAN Emergency Medicine; FAMILY PHYSICIAN Nurse Practitioner Family
DX: N39.0 Urinary tract infection, site not specified (principal); I10 Essential (primary) hypertension
CPT/HCPCS: 99282; 81003; 81015; 87077; 87086; 87186

== ENCOUNTER → 2024-04-23 08:53 | Outpatient (REF) | payer MEDICARE, OTHER, SELFPAY ==
[2024-04-23 09:15] VITALS: BP 198/107; BP_SYST 67
[2024-04-23 09:30] VITALS: BP 153/75; BP_SYST 70
[2024-04-23 10:38] LABS: Body Fluid pH 7.49
[2024-04-23 10:49] LABS: Body Fluid WBC 1184 /CUMM
[2024-04-23 10:53] LABS: Body Fluid Glucose 101 mg/dl; Body Fluid LDH 149 U/L
[2024-04-23 11:07] LABS: Body Fluid Second Tech AMA
== END ==
LOC: RADI 08:53
PROVIDERS: ATTENDING PHYSICIAN Internal Medicine Critical Care Medicine; FAMILY PHYSICIAN Nurse Practitioner Family
DX: J90 Pleural effusion, not elsewhere classified (principal)
CPT/HCPCS: 88305; 32555; 71045; 82945; 83615; 83986; 84157; 87015; 87070; 87102; 87116; 87205; 88112; 89051

== ENCOUNTER 2024-04-30 11:01 | Emergency (ER) | payer MEDICARE, OTHER, SELFPAY ==
[2024-04-30 11:07] VITALS: BP 200/118
[2024-04-30 11:39] VITALS: BMI 33.1
--- NOTE | 2024-04-30 12:08 | ED.GENMED ---
History of Present Illness
General
Chief Complaint: Male Genito-Urinary Symptoms
Source: patient
Exam Limitations: none
Time Seen by Provider: 04/30/24 11:50
Travel History
Have you had any contact with someone who has COVID-19?: No
Do you have any symptoms of coronavirus? Fever > 100 degrees, chills, cough, shortness of breath, sore throat, loss of taste or smell, muscle aches, or headache?: No
History of Present Illness
History of Present Illness:
79-year-old male presents with leaking around his Cm catheter without drainage into the bag. He is on the catheter for about a month secondary to enlarged prostate. He is talking to urology for intervention. No fever. No other complaints at
this time.
Past History
Past History
ED Past Medical History: HTN
ED Past Surgical History: None
Patient has exhibited threatening behavior?: No
PSI?: No
Social History
Tobacco: Non-smoker
Alcohol: Occasional
Personal:
Living: with family
Employment: Retired
Phy Exam
Physical Exam
Physical Exam:
General: well appearing male NAD
HEENT: NC/AT
Heart: RRR, no murmurs
LUngs: CTA bilaterally
Abd: soft, tender to suprapubic area
: cm catheter in place. Bag initially dry.
Course
Vital Signs
Initial and Last Documented VS:
Initial Vital Signs
Temp Pulse Resp BP Pulse Ox
98.6 F 68 16 200/118 98
04/30/24 11:07 04/30/24 11:07 04/30/24 11:07 04/30/24 11:07 04/30/24 11:07
Last Documented Vital Signs
Temp Pulse Resp BP Pulse Ox
98.6 F 68 16 200/118 98
04/30/24 11:07 04/30/24 11:07 04/30/24 11:07 04/30/24 11:07 04/30/24 11:07
MDM/Problems Addressed
Differential Diagnosis Includes:
Dysfunction of Cm catheter. Cm catheter exchanged by nursing staff and about 1400 mL of urine was evacuated from the bladder. Patient feeling much better. Stable for. He is to follow-up with urology
*Critical Care Note
Total Time (30-74mins, 75-104mins- exclusive of procedures): Not Applicable
ED Attending Note
-
Portions of this chart may have been created with voice recognition software.� Occasional wrong word or��sound alike� substitutions may have occurred due to the inherent limitations of voice recognition software.
Discharge Plan
Departure
Patient Disposition: Home (Routine Discharge)
Date of Disposition: 04/30/24
Time of Disposition: 12:11
Patient with high blood pressure during this ER visit?: No
Discharge Problem:
Cm catheter problem
Prescriptions:
No Action
spironolactone 25 mg Tablet
25 mg PO DAILY
losartan 25 mg Tablet
25 mg PO DAILY
magnesium 250 mg Tablet
250 mg PO DAILY
labetalol 300 mg Tablet
300 mg PO TID
finasteride 5 mg Tablet
5 mg PO DAILY
acetaminophen [Tylenol Extra Strength] 500 mg Tablet
500 mg PO DAILYPRN PRN (Reason: mild pain)
acetaminophen [Tylenol Extra Strength] 500 mg Tablet
1,000 mg PO DAILYPRN PRN (Reason: severe pain)
folic acid 800 mcg Tablet
0.8 mg PO DAILY
furosemide 40 mg Tablet
40 mg PO DAILY Qty: 30 0RF
thiamine HCl (vitamin B1) 100 mg Tablet
100 mg PO DAILY Qty: 0 0RF
tamsulosin 0.4 mg Capsule
0.4 mg PO HS Qty: 30 0RF
aspirin 81 mg Tablet,Delayed Release (Dr/Ec)
81 mg PO DAILY Qty: 90 0RF
cyanocobalamin (vitamin B-12) 1,000 mcg capsule
1,000 mcg PO DAILY Qty: 90 0RF
cephalexin 500 mg capsule
500 mg PO BID 7 Days Qty: 14 0RF
Referrals:
Neo Can CRNP [Family Provider] -
Activity Restrictions/Additional Instructions:
Return if needed. Follow-up with urology as planned
Interventions
Interventions:
*Risk Screen - Suicide Last Done: 04/30/24 11:39
*General Assessment Last Done: 04/30/24 11:39
*Neglect/Abuse Screening Last Done: 04/30/24 11:39
*ED COVID-19 Vaccine History Last Done: 04/30/24 11:07
ED-Male Genitourinary Assessment Last Done: 04/30/24 11:39
Discharge Date and Time
Print Language: LITHUANIAN
== END 2024-04-30 12:51 | disposition home or self-care (01) ==
LOC: EMR 11:01
PROVIDERS: EMERGENCY PHYSICIAN Emergency Medicine; FAMILY PHYSICIAN Nurse Practitioner Family
DX: T83.098A Other mechanical complication of other urinary catheter, initial encounter (principal); Y73.8 Miscellaneous gastroenterology and urology devices associated with adverse incidents, not elsewhere classified; Y84.6 Urinary catheterization as the cause of abnormal reaction of the patient, or of later complication, without mention of misadventure at the time of the procedure
CPT/HCPCS: 99283; 51702

== ENCOUNTER 2024-05-10 14:08 | Emergency (ER) | payer MEDICARE, OTHER, SELFPAY ==
[2024-05-10 14:09] VITALS: BP 198/92
[2024-05-10 14:45] VITALS: BMI 32.6
--- NOTE | 2024-05-10 15:44 | ED.GENMED ---
History of Present Illness
General
Chief Complaint: Catheter/Tube Problem
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
Exam Limitations: none
Time Seen by Provider: 05/10/24 15:04
Nursing documentation reviewed up to this point in time: agreed with
History of Present Illness
History of Present Illness:
79-year-old male with Hinton catheter in place. Claims that this became blocked earlier today try to contact his urologist but they were unable to get through. Presenting for replacement.
Past History
Past History
ED Past Medical History: HTN
ED Past Surgical History: None
Patient has exhibited threatening behavior?: No
PSI?: No
Social History
Tobacco: Non-smoker
Alcohol: Occasional
Personal:
Living: with family
Employment: Retired
Review of Systems
Review of Systems
Allergies reviewed?: Yes
All Other Systems: ROS reviewed and negative except as documented in HPI and ROS
Phy Exam
Physical Exam
Physical Exam:
GENERAL: Alert , in no apparent distress
EYE: pupils equal and reactive
NECK: Supple, no significant adenopathy.
ENT: o/p clr, mmm.
CARDIAC: Regular rate and rhythm .
LUNGS: Clear breath sounds bilaterally, no acute respiratory distress, no wheezes/rales/rhonchi
ABDOMEN: Soft, without focal tenderness, no r/g, no cvat
NEUROLOGICAL: Alert and oriented, no focal neuro deficits
SKIN: Warm and dry, skin intact.
MUSCULOSKELETAL: No edema, well perfused.
PSYCH: Normal and appropriate interaction.
Course
Orders/Labs/Results
Orders:
Orders
05/10/24 15:43
Hinton Placement- Treatment ONCE
Reason for insertion: Acute Retention
05/10/24 15:51
Vital Signs- Treatment ONCE
Frequency: Once
05/10/24 15:59
Urinalysis Reflex To Culture Urgent
Date Specimen was Collected: 05/10/24
Time Specimen was Collected: 15:55
Urine Microscopic Reflex Cult Urgent
Urine Culture Urgent
JUSTYN Source: U
Specimen Description:
Date Specimen was Collected: 05/10/24
Time Specimen was Collected: 15:55
05/10/24 16:43
Cephalexin Monohydrate [Keflex] 500 mg PO NOW STA
Abnormal Lab Results
05/10/24
15:59
Ur Occult Blood Reflex 4+ A
(Negative)
Urine Nitrite (Reflex) Positive A
(Negative)
Leukocyte Esterase Rfl 2+ A
(Negative)
Urine RBC 30-40 A /HPF
(0-2)
Urine WBC (Reflex) 21-25 A /HPF
(0-5)
Urine Bacteria (Reflex) Many A
(Negative)
Urine Albumin (Reflex) 3+ A
(Neg - Trace)
Vital Signs
Initial and Last Documented VS:
Initial Vital Signs
Temp Pulse Resp BP
98.4 F 73 18 198/92
05/10/24 14:09 05/10/24 14:09 05/10/24 14:09 05/10/24 14:09
Last Documented Vital Signs
Temp Pulse Resp BP Pulse Ox
98.4 F 78 18 200/99 97
05/10/24 14:09 05/10/24 15:59 05/10/24 15:59 05/10/24 15:59 05/10/24 15:59
MDM/Problems Addressed
MDM/Problems Addressed:
79-year-old male presenting to the emergency department today with concerns of blocked Hinton catheter. This was replaced here without incident. Patient now asymptomatic. Initial blood pressure elevated this remained elevated while here. He
denies any specific symptoms related to it. He did miss multiple blood pressure medications today. He will take this and monitor closely at home otherwise was started on due to nitrites leukocyte Estrace and cloudy appearing urine draining into
the new Hinton catheter otherwise stable for discharge.
*Critical Care Note
Total Time (30-74mins, 75-104mins- exclusive of procedures): Not Applicable
ED Attending Note
-
Portions of this chart may have been created with voice recognition software.� Occasional wrong word or��sound alike� substitutions may have occurred due to the inherent limitations of voice recognition software.
Discharge Plan
Departure
Patient Disposition: Home (Routine Discharge)
Date of Disposition: 05/10/24
Time of Disposition: 16:50
Patient with high blood pressure during this ER visit?: No
Condition: Good
Covid-19: Not Applicable
Discharge Problem:
Complication, blocked Hinton catheter, Acute UTI
Instructions: How to Care for Your Hinton Catheter, Male, Urinary Tract Infection, Adult ED
Prescriptions:
New
cephalexin 500 mg capsule
500 mg PO TID 7 Days Qty: 21 0RF
No Action
spironolactone 25 mg Tablet
25 mg PO DAILY
losartan 25 mg Tablet
25 mg PO DAILY
magnesium 250 mg Tablet
250 mg PO DAILY
labetalol 300 mg Tablet
300 mg PO TID
finasteride 5 mg Tablet
5 mg PO DAILY
acetaminophen [Tylenol Extra Strength] 500 mg Tablet
500 mg PO DAILYPRN PRN (Reason: mild pain)
acetaminophen [Tylenol Extra Strength] 500 mg Tablet
1,000 mg PO DAILYPRN PRN (Reason: severe pain)
folic acid 800 mcg Tablet
0.8 mg PO DAILY
furosemide 40 mg Tablet
40 mg PO DAILY Qty: 30 0RF
thiamine HCl (vitamin B1) 100 mg Tablet
100 mg PO DAILY Qty: 0 0RF
tamsulosin 0.4 mg Capsule
0.4 mg PO HS Qty: 30 0RF
aspirin 81 mg Tablet,Delayed Release (Dr/Ec)
81 mg PO DAILY Qty: 90 0RF
cyanocobalamin (vitamin B-12) 1,000 mcg capsule
1,000 mcg PO DAILY Qty: 90 0RF
cephalexin 500 mg capsule
500 mg PO BID 7 Days Qty: 14 0RF
Referrals:
Clarke Humphrey MD [Active] - Follow up in 5-7 days
Neo Can CRNP [Family Provider] -
Activity Restrictions/Additional Instructions:
You came to the emergency department today with concerns of a blocked Hinton catheter. This was replaced. You are started on an antibiotic for possible UTI. Please take this as prescribed over the next week. Return to the emergency department for
any worsening, new or concerning symptoms.
Interventions
Interventions:
*Risk Screen - Suicide Last Done: 05/10/24 14:09
*General Assessment Last Done: 05/10/24 14:09
*Neglect/Abuse Screening Last Done: 05/10/24 14:09
ED- Fall Risk Assessment Last Done: 05/10/24 14:45
*ED COVID-19 Vaccine History Last Done: 05/10/24 14:09
MA-Bwhzew-Jdxamiabds Assessment Last Done: 05/10/24 14:45
ED-Male Genitourinary Assessment Last Done: 05/10/24 14:45
Discharge Date and Time
Print Language: PAKISTANI
[2024-05-10 15:59] VITALS: BP 200/99
[2024-05-10 16:00] VITALS: BP 201/99
[2024-05-10 16:29] LABS: Urine Albumin 3+ (Neg - Trace); Urine Bilirubin Negative (Negative); Urine Character Very Cloudy (Clear); Urine Color Brown; Urine Glucose Negative (Negative); Urine Ketone Negative (Negative); Urine Leukocyte 2+ (Negative); Urine Nitrite Positive (Negative); Urine Occult Blood 4+ (Negative); Urine Urobilinogen Negative (Neg - 1+)
[2024-05-10 16:49] LABS: Urine Bacteria Many (Negative); Urine Red Blood Cell 30-40 /HPF (0-2); Urine White Cell 21-25 /HPF (0-5)
[2024-05-10] MEDS: KEFLEX 500 MG PO (17:15)
[2024-05-10 17:30] VITALS: BP 196/76
--- NOTE | 2024-05-10 17:30 | EDRN ---
Reviewed discharge instructions with patient. Verbalized understanding. Ambulated with steady gait to the lobby.
== END 2024-05-10 17:40 | disposition home or self-care (01) ==
LOC: EMR 14:08
PROVIDERS: Physician Assistant; EMERGENCY PHYSICIAN Emergency Medicine; FAMILY PHYSICIAN Nurse Practitioner Family
DX: T83.091A Other mechanical complication of indwelling urethral catheter, initial encounter (principal); N39.0 Urinary tract infection, site not specified; X58.XXXA Exposure to other specified factors, initial encounter; I10 Essential (primary) hypertension
CPT/HCPCS: 99282; 81003; 81015; 87077; 87086

== ENCOUNTER → 2024-05-11 12:03 | Outpatient (REF) | payer MEDICARE, OTHER, SELFPAY | LOC: HWRAD 12:03 | PROVIDERS: ATTENDING PHYSICIAN Internal Medicine Critical Care Medicine; FAMILY PHYSICIAN Nurse Practitioner Family | DX: J90 Pleural effusion, not elsewhere classified (principal) | CPT/HCPCS: 71046 ==

== ENCOUNTER → 2024-06-13 09:51 | Outpatient (REF) | payer MEDICARE, OTHER, SELFPAY | LOC: HWRAD 09:51 | PROVIDERS: ATTENDING PHYSICIAN Internal Medicine Critical Care Medicine; FAMILY PHYSICIAN Nurse Practitioner Family | DX: J90 Pleural effusion, not elsewhere classified (principal) | CPT/HCPCS: 71046 ==

== ENCOUNTER 2024-07-15 08:05 | Emergency (ER) | payer MEDICARE, OTHER, SELFPAY ==
[2024-07-15 08:06] VITALS: BP 209/99
--- NOTE | 2024-07-15 08:53 | ED.GENMED ---
History of Present Illness
General
Chief Complaint: Catheter/Tube Problem
Source: patient
Time Seen by Provider: 07/15/24 08:12
History of Present Illness
History of Present Illness:
79-year-old male with past medical history of hypertension, BPH and chronic urinary retention with an indwelling Hinton catheter presenting to ER after Hinton catheter appeared blocked and not draining this morning. Patient states that this was
replaced 2 weeks ago at his urologist office without any problems. He denies any pain and states he feels in his usual state of health.
Past History
Past History
ED Past Medical History: HTN
ED Past Surgical History: None
Patient has exhibited threatening behavior?: No
PSI?: No
Social History
Tobacco: Non-smoker
Alcohol: Occasional
Drug: None
Personal:
Living: with family
Employment: Retired
Review of Systems
Review of Systems
All Other Systems: ROS reviewed and negative except as documented in HPI and ROS
Phy Exam
Physical Exam
Physical Exam:
GENERAL: Alert , in no apparent distress
EYE: conjunctiva clear
Head: Normocephalic atraumatic
NECK: Supple,
ENT: mmm.
LUNGS: no acute respiratory distress
Abdomen: Soft, nontender, nondistended
Genitourinary: Hinton catheter in place, less than 25 mL of clear yellow urine in Hinton bag
NEUROLOGICAL: Alert and oriented
SKIN: Warm and dry, skin intact.
MUSCULOSKELETAL: well perfused.
PSYCH: Normal and appropriate interaction.
Scores
Heart Failure Risk
Heart Failure Risk Score: Not Applicable
Heart Score for Chest Pain Patients
STEMI patient?: Not applicable
Withdrawal Assessment of Alcohol
Withdrawal Assessment Completed?: Not applicable
Course
Vital Signs
Initial and Last Documented VS:
Initial Vital Signs
Temp Pulse Resp BP Pulse Ox
99.1 F 68 16 209/99 96
07/15/24 08:06 07/15/24 08:06 07/15/24 08:06 07/15/24 08:06 07/15/24 08:06
Last Documented Vital Signs
Temp Pulse Resp BP Pulse Ox
99.1 F 68 16 209/99 96
07/15/24 08:06 07/15/24 08:06 07/15/24 08:06 07/15/24 08:06 07/15/24 08:06
MDM/Problems Addressed
MDM/Problems Addressed:
79-year-old male presenting emergency department for evaluation of clogged Hinton catheter. Hinton catheter was flushed and no return. Patient's Hinton catheter was ultimately removed and replaced with new catheter with return of clear yellow urine.
Patient to be discharged to follow-up with urology. I do not have concern for UTI suspect that if urinalysis was sent there would be contamination from the chronic indwelling Hinton catheter. Patient is afebrile without any evidence for UTI.
*Pulse Oximetry
Patient hypoxic: no
*Critical Care Note
Total Time (30-74mins, 75-104mins- exclusive of procedures): Not Applicable
ED Attending Note
-
Portions of this chart may have been created with voice recognition software.� Occasional wrong word or��sound alike� substitutions may have occurred due to the inherent limitations of voice recognition software.
Discharge Plan
Departure
Patient Disposition: Home (Routine Discharge)
Date of Disposition: 07/15/24
Time of Disposition: 08:53
Patient with high blood pressure during this ER visit?: Yes
Discharge Problem:
Obstructed Hinton catheter
Instructions: How to Care for Your Hinton Catheter, Male
Prescriptions:
No Action
spironolactone 25 mg Tablet
25 mg PO DAILY
losartan 25 mg Tablet
25 mg PO DAILY
magnesium 250 mg Tablet
250 mg PO DAILY
labetalol 300 mg Tablet
300 mg PO TID
finasteride 5 mg Tablet
5 mg PO DAILY
acetaminophen [Tylenol Extra Strength] 500 mg Tablet
500 mg PO DAILYPRN PRN (Reason: mild pain)
acetaminophen [Tylenol Extra Strength] 500 mg Tablet
1,000 mg PO DAILYPRN PRN (Reason: severe pain)
folic acid 800 mcg Tablet
0.8 mg PO DAILY
furosemide 40 mg Tablet
40 mg PO DAILY Qty: 30 0RF
thiamine HCl (vitamin B1) 100 mg Tablet
100 mg PO DAILY Qty: 0 0RF
tamsulosin 0.4 mg Capsule
0.4 mg PO HS Qty: 30 0RF
aspirin 81 mg Tablet,Delayed Release (Dr/Ec)
81 mg PO DAILY Qty: 90 0RF
cyanocobalamin (vitamin B-12) 1,000 mcg capsule
1,000 mcg PO DAILY Qty: 90 0RF
cephalexin 500 mg capsule
500 mg PO BID 7 Days Qty: 14 0RF
cephalexin 500 mg capsule
500 mg PO TID 7 Days Qty: 21 0RF
Referrals:
Neo Can CRNP [Family Provider] -
Interventions
Interventions:
*Risk Screen - Suicide Last Done: 07/15/24 09:17
*General Assessment Last Done: 07/15/24 09:17
*Neglect/Abuse Screening Last Done: 07/15/24 09:17
*ED COVID-19 Vaccine History Last Done: 07/15/24 09:17
BH-Rsefps-Plnahclamp Assessment Last Done: 07/15/24 09:17
ED-Male Genitourinary Assessment Last Done: 07/15/24 09:17
Discharge Date and Time
Print Language: CONGOLESE
[2024-07-15 09:36] VITALS: BP 176/93
== END 2024-07-15 09:38 | disposition home or self-care (01) ==
LOC: EMR 08:05
PROVIDERS: EMERGENCY PHYSICIAN Emergency Medicine; FAMILY PHYSICIAN Nurse Practitioner Family
DX: T83.091A Other mechanical complication of indwelling urethral catheter, initial encounter (principal); Y84.6 Urinary catheterization as the cause of abnormal reaction of the patient, or of later complication, without mention of misadventure at the time of the procedure; Y73.1 Therapeutic (nonsurgical) and rehabilitative gastroenterology and urology devices associated with adverse incidents; N40.1 Benign prostatic hyperplasia with lower urinary tract symptoms; R33.8 Other retention of urine; I10 Essential (primary) hypertension
CPT/HCPCS: 99283; 51702

== ENCOUNTER → 2024-07-24 10:46 | Outpatient (REF) | payer MEDICARE, OTHER, SELFPAY ==
[2024-07-24 11:30] VITALS: BP 175/89; BP_SYST 71
[2024-07-24 11:52] VITALS: BP 130/88; BP_SYST 60
[2024-07-24 12:13] VITALS: BP 143/83
[2024-07-24 14:04] LABS: Body Fluid pH 7.49
[2024-07-24 14:16] LABS: Body Fluid Glucose 109 mg/dl; Body Fluid LDH 168 U/L
[2024-07-24 14:18] LABS: Body Fluid WBC 1233 /CUMM
[2024-07-24 14:19] LABS: Body Fluid Mononuclear 95.5 %; Body Fluid Polymorphonuclear 4.5 %
[2024-07-24 14:21] LABS: Body Fluid Second Tech HB
== END ==
LOC: RADI 10:46
PROVIDERS: ATTENDING PHYSICIAN Internal Medicine Critical Care Medicine; CONSULT PHYSICIAN Radiology Diagnostic Radiology
DX: J90 Pleural effusion, not elsewhere classified (principal)
CPT/HCPCS: 88305; 32555; 71045; 71046; 82945; 83615; 83986; 84157; 87015; 87070; 87102; 87116; 87205; 88112; 89051

== ENCOUNTER 2024-09-04 12:29 | Inpatient (IN) | payer MEDICARE, OTHER, SELFPAY ==
[2024-08-28 10:36] VITALS: BMI 36.2
[2024-09-04] VITALS (9 sets, daily range): BP systolic 160–220; BP diastolic 90–118; BMI 31.2
[2024-09-04] MEDS: LASIX 40 MG IV (12:14)
[2024-09-04] MEDS: FLUSH (NSS) 2 FLUSH IV (12:16)
--- NOTE | 2024-09-04 12:26 | HPS.HSE ---
Family Physician
-
Family Physician: INTERVIEWE UNKNOWN - PT NOT
Chief Complaint
-
Shortness of breath.
Elevated blood pressure
History of Present Illness
Patient is 79 years old male with chronic bladder outlet obstruction and indwelling Hinton catheter who is brought for elective urologic procedure today and was found to be short of breath with significantly elevated blood pressure. Patient was
instructed to hold some of the blood pressure medications in preparation for surgery, although with misunderstanding stopped his blood pressure medications and diuretics with the last dose on August 29. He has been taking labetalol only being off
Lasix, spironolactone, and losartan.
Interval relation patient denies any chest pain, feels mildly short of breath and complains of worsening of bilateral lower extremity edema.
Procedure had been canceled and patient being admitted to medical service.
Medical History
Past Medical History
Past Medical History: Reports Arrhythmia (Paroxysmal atrial fibrillation), CHF (Preserved EF/diastolic dysfunction), HTN and Other (Chronic urinary tension with indwelling Hinton catheter.)
Past Surgical History: Reports None
Social History
Tobacco: Non-smoker
Alcohol: Daily
Drug: None
Living: With Family
Employment: Retired
Family History
Family History: Not pertinent
Allergies / Home Medications
Allergies reflects when Allergies were last updated in [facility].
Home Medications with original date entered in [facility]
Allergy/Medication List:
Allergies
Allergy/AdvReac Type Severity Reaction Status Date / Time
No Known Allergies Allergy Verified 09/04/24 10:17
Home Medications
acetaminophen 500 mg tablet (Tylenol Extra Strength) 1,000 mg PO DAILYPRN PRN severe pain 02/20/24
acetaminophen 500 mg tablet (Tylenol Extra Strength) 500 mg PO DAILYPRN PRN mild pain 02/20/24
finasteride 5 mg tablet 5 mg PO DAILY Urinary Issue 02/20/24
folic acid 800 mcg tablet 0.8 mg PO DAILY Supplement 02/20/24
labetalol 300 mg tablet 300 mg PO TID Blood Pressure 02/20/24
losartan 25 mg tablet 25 mg PO BID Blood Pressure 02/20/24
magnesium 250 mg tablet 250 mg PO DAILY Supplement 02/20/24
spironolactone 25 mg tablet 25 mg PO DAILY Blood Pressure 02/20/24
aspirin 81 mg tablet,delayed release 81 mg PO DAILY Blood clot prevention/tx #90 tabs 02/23/24
cyanocobalamin (vitamin B-12) 1,000 mcg capsule 1,000 mcg PO DAILY Supplement #90 caps 02/23/24
furosemide 40 mg tablet 40 mg PO DAILY Fluid retention/Swelling #30 tabs 02/23/24
tamsulosin 0.4 mg capsule 0.4 mg PO HS Urinary issue #30 caps 02/23/24
thiamine HCl (vitamin B1) 100 mg tablet 100 mg PO DAILY Supplement #0 tabs 02/23/24
albuterol 90 mcg/actuation aerosol inhaler 1 mcg inhalation DAILY PRN shortness of breath 09/04/24
fluticasone fur. 100 mcg-umeclid 62.5 mcg-vilant 25 mcg inhalat.powder (Trelegy Ellipta) 1 inh inhalation DAILY asthma 09/04/24
Review of Systems
-
A 12 point ROS was completed and negative except as noted: Yes
Physical Exam
Vital Signs
Vital Signs
Temp Pulse Resp BP Pulse Ox
98.6 F 66 20 188/101 97
09/04/24 10:28 09/04/24 12:14 09/04/24 10:28 09/04/24 12:14 09/04/24 10:28
Physical Exam
General: Well Developed, Well Nourished and No Apparent Distress
HEENT: NormoCephalic, Moist mucous membranes and Atraumatic
Respiratory: Clear
Cardiac: S1/S2 and Irregular Rhythm; No Murmur or Rub
GI: Soft, Non Tender, Non Distended and Normal Bowel Sounds; No Organomegaly
Rectal: Deferred by Provider
Musculoskeletal: No Clubbing, No Cyanosis, No Edema and Other (Bilateral lower extremity edema 2+)
Skin: No Rash
Neuro: Awake, Alert, Oriented, AO x 3 and Nonfocal/grossly intact
Impression/Plan
-
IMPRESSION:
Presented for elective urologic procedure and found to be in hypertensive urgency.
Hypertensive urgency
Acute CHF preserved EF
Worsening of lower extremity edema
Other conditions:
Essential hypertension.
Chronic CHF preserved EF
Paroxysmal atrial fibrillation
History of left pleural effusion requiring thoracentesis 03/07. Exudate while on Lasix with negative path for malignancy.
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
BPH with chronic bladder outlet obstruction and indwelling Hinton catheter.
Daily alcohol use
PLAN:
Hypertensive urgency due to missed medications in preparation for surgery.
Chest pain-free.
Stable respiratory status with no requirements for supplemental oxygen.
Resume Lasix first dose 40 mg IV will be given with resumption of daily oral dose at 40 mg per
Resume labetalol and losartan.
Resume spironolactone
Monitor blood pressure trend.
Acute on chronic CHF preserved EF.
Echo 03/07 LVEF 65 to 70%. Diastolic function intermediate. No significant valvular abnormalities. Pulmonary artery pressure 54 mmHg.
Had been holding diuretics since August 29 in preparation for surgery.
Stable respiratory status with no requirements for supplemental oxygen.
Bilateral 2+ lower extremity pitting edema.
CHF BNP
Daily weights
Resume diuretics as above
Resume preadmission antihypertensive regimen.
Paroxysmal atrial fibrillation
Continue labetalol
Obtain ECG
Continue labetalol.
Patient declined thromboembolic prophylaxis with anticoagulation in the past.
History of left pleural effusion exudative while on diuretics with negative pathology
Will repeat chest x-ray
BPH with chronic bladder outlet obstruction.
Indwelling Hinton will be continued
Continue finasteride and Flomax
As per urology elective procedure will be postponed at this time
DVT prophylaxis heparin
Full code.
--- NOTE | 2024-09-04 13:24 | W.PN.UPDATE ---
Update Note
Progress Note Update
Planned TURP today cancelled due to acutely worsened fluid overload and shortness of breath
Patient misunderstood preop instructions from PAT and stopped all of his medications 1 week ago
Admitted to medical service to address significant SOB, HTB, fluid overload, effusion
Appreciate medical optimization and opinion on risk for rescheduling TURP in a few weeks time
[2024-09-04] MEDS: ALDACTONE 25 MG PO (14:09)
[2024-09-04] MEDS: COZAAR 25 MG PO ×2 (14:10→19:49)
[2024-09-04] MEDS: FLOMAX 0.4 MG PO (14:10)
[2024-09-04 14:28] LABS: % Basophils 0.4 % (0-2); % Eosinophils 2.1 % (0-6); % Immature Granulocytes 0.3 % (0-0.5); % Lymphocytes 12.2 % (20.5-51.1); % Monocytes 6.4 % (1.7-9.3); % Neutrophils 78.6 % (42.2-75.2); Absolute Eosinophils 0.2 10^3/uL (0-0.7); Absolute Lymphocytes 1.2 10^3/uL (1.2-3.4); Absolute Monocytes 0.6 10^3/uL (0.1-0.6); Absolute Neutrophils 7.8 10^3/uL (1.4-6.5); Hematocrit 34.3 % (39.0-52.0); Hemoglobin 11.5 g/dL (13.0-18.0); Mean Corp Hgb Conc. 33.5 g/dL (33.0-37.0); Mean Corpuscular Hgb 28.8 pg (27.0-31.0); Mean Corpuscular Volume 85.8 fL (80.0-94.0); Mean Platelet Volume 11.1 fL (7.4-10.4); Nucleated Red Blood Cells % 0 % (-); Platelet Count 150 10^3/uL (130-400); Red Cell Dist. Width 15.1 % (11.5-14.5); White Blood Cell Count 9.9 10^3/uL (4.8-10.8)
[2024-09-04 14:36] LABS: NT-proBNP 4290 pg/ml
[2024-09-04 14:56] LABS: Blood Urea Nitrogen 22 mg/dl (9-20); Calcium 9.3 mg/dl (8.4-10.2); Carbon Dioxide 25 mmol/L (22-30); Chloride 104 mmol/L (98-107); Estimated Creatinine Clearance 59 ml/min; Glucose 97 mg/dl (70-99); Potassium 4.2 mmol/L (3.5-5.1); Sodium 142 mmol/L (135-145); eGFR 56.58
[2024-09-04] MEDS: TRANDATE 300 MG PO ×2 (16:22→21:51)
[2024-09-04] MEDS: HEPARIN 5000 UNITS SC ×2 (16:22→23:34)
--- NOTE | 2024-09-04 16:40 | PTCARENOTE ---
The patient was admitted with CHF from same day services.He was scheduled to have a TURP but they were unable to do the surgery due to the fluid overload.The patient had misunderstood when he should stop taking his medications preop.On admission the
patient denies any pain.His blood pressure remains high.Will continue to monitor vital signs.The patient is in his bed with the call cadena.
[2024-09-05] VITALS (8 sets, daily range): BP systolic 135–197; BP diastolic 80–109; BMI 31.2
[2024-09-05] MEDS: TRANDATE 5 MG IV (03:36)
[2024-09-05] MEDS: ALDACTONE 25 MG PO (07:41)
[2024-09-05] MEDS: TRANDATE 300 MG PO ×3 (07:41→21:46)
[2024-09-05] MEDS: PROSCAR 5 MG PO (07:42)
[2024-09-05] MEDS: FLOMAX 0.4 MG PO (07:42)
[2024-09-05] MEDS: ASPIR LOW (ENTERIC COATED) 81 MG PO (07:42)
[2024-09-05] MEDS: HEPARIN 5000 UNITS SC ×3 (07:42→23:09)
[2024-09-05] MEDS: LASIX 40 MG PO (07:42)
[2024-09-05] MEDS: COZAAR 25 MG PO ×2 (07:42→20:33)
--- NOTE | 2024-09-05 12:18 | CM ---
Met with pt at bedside
Pt reports he lives in a 2 story home with his ; no steps to enter, FF set-up
Pt reports his has hx of CVA. He assists her with daily task, ADL's prn - he is independent at baseline, driving. Family is available to assist pts while pt hospitalized
DME - ramps throughout home, wheel chair, rolling walker, shower chair
SNF/HH - no past hx
Has ride home at discharge
PCP - Lainey WILKERSON
Pharm - [facility]
Plan - anticipate home no needs vs w/VN when medically stable
[2024-09-05 15:20] LABS: Blood Urea Nitrogen 21 mg/dl (9-20); Calcium 9.4 mg/dl (8.4-10.2); Carbon Dioxide 28 mmol/L (22-30); Chloride 99 mmol/L (98-107); Estimated Creatinine Clearance 55 ml/min; Glucose 87 mg/dl (70-99); Potassium 4.1 mmol/L (3.5-5.1); Sodium 139 mmol/L (135-145); eGFR 51.77
[2024-09-05] MEDS: LASIX 40 MG IV (16:08)
--- NOTE | 2024-09-05 16:13 | W.PN.HOSP.TC ---
Today's Communication/Plan
-
Volume overloaded with peripheral edema, suboptimal BP control
Chest x-ray with reaccumulated left pleural effusion.
Additional dose of IV Lasix 40 mg will be given today (if 40 mg p.o. in the morning)
Continue current antihypertensive regimen
For left thoracentesis tomorrow by IR at.
Assessment / Plan
Assessment / Plan
IMPRESSION:
Presented for elective urologic procedure and found to be in hypertensive urgency.
Hypertensive urgency
Acute CHF preserved EF
Worsening of lower extremity edema
Other conditions:
Essential hypertension.
Chronic CHF preserved EF
Paroxysmal atrial fibrillation
History of left pleural effusion requiring thoracentesis 03/07. Exudate while on Lasix with negative path for malignancy.
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
BPH with chronic bladder outlet obstruction and indwelling Hinton catheter.
Daily alcohol use
PLAN:
Hypertensive urgency due to missed medications in preparation for surgery.
Chest pain-free.
Stable respiratory status with no requirements for supplemental oxygen.
Resume Lasix first dose 40 mg IV will be given with resumption of daily oral dose at 40 mg per
Resume labetalol and losartan.
Resume spironolactone
Monitor blood pressure trend.
Acute on chronic CHF preserved EF.
Echo 03/07 LVEF 65 to 70%. Diastolic function intermediate. No significant valvular abnormalities. Pulmonary artery pressure 54 mmHg.
Had been holding diuretics since August 29 in preparation for surgery.
Stable respiratory status with no requirements for supplemental oxygen.
Bilateral 2+ lower extremity pitting edema.
CHF BNP 4290 (2630 baseline)
Chest x-ray with reaccumulating at least moderate left pleural effusion.
Good response to diuresis.
Give additional dose of IV Lasix today and continue 40 mg p.o. daily
Daily weights
Paroxysmal atrial fibrillation
Continue labetalol
Obtain ECG
Continue labetalol.
Patient declined thromboembolic prophylaxis with anticoagulation in the past.
History of left pleural effusion exudative while on diuretics with negative pathology
Follow-up chest x-ray with reaccumulating at least moderate left pleural effusion
Interventional radiology consultation for thoracentesis on 09/06.
BPH with chronic bladder outlet obstruction.
Indwelling Hinton will be continued
Continue finasteride and Flomax
As per urology elective procedure will be postponed at this time
DVT prophylaxis heparin
Full code.
Anticipated Discharge: 24 - 48 hours
Subjective/Interval History
-
Date of Service: September 05, 2024
Objective Data
-
Labs:
Laboratory Results
09/05/24
14:01
Sodium 139
Potassium 4.1
Chloride 99
Carbon Dioxide 28
BUN 21 H
Creatinine 1.4 H
Glucose 87
Calcium 9.4
Vital Signs:
Vital Signs
Temp Pulse Resp BP Pulse Ox
97.9 F 70 15 135/95 95
09/05/24 15:22 09/05/24 16:08 09/05/24 15:22 09/05/24 16:08 09/05/24 15:22
I&O
09/04/24 09/05/24 09/06/24
06:59 06:59 06:59
Intake Total 240 / 240
Output Total 1550 / 1550 425 / 425
Balance -1310 / -1310 -425 / -425
Physical Exam
-
General: No Apparent Distress and Obese
HEENT: Moist Mucous Membranes
Respiratory: Clear to Auscultation
Cardiac: S1/S2 and Irregular Rhythm; Negative Murmur, Rub or JVD
GI: Soft, Nontender, Nondistended and Normal Bowel Sounds
Musculoskeletal: No Edema
Neuro: Awake, Alert, Oriented and No Motor Deficits
Psych: Calm
[2024-09-06 03:14] VITALS: BP 156/89
[2024-09-06 07:39] LABS: Blood Urea Nitrogen 25 mg/dl (9-20); Calcium 9.2 mg/dl (8.4-10.2); Carbon Dioxide 28 mmol/L (22-30); Chloride 99 mmol/L (98-107); Estimated Creatinine Clearance 55 ml/min; Glucose 91 mg/dl (70-99); Potassium 4.2 mmol/L (3.5-5.1); Sodium 141 mmol/L (135-145); eGFR 51.77
[2024-09-06 07:51] VITALS: BP 148/94
[2024-09-06] MEDS: PROSCAR 5 MG PO (07:58)
[2024-09-06] MEDS: ASPIR LOW (ENTERIC COATED) 81 MG PO (07:58)
[2024-09-06] MEDS: ALDACTONE 25 MG PO (07:58)
[2024-09-06] MEDS: COZAAR 25 MG PO (07:58)
[2024-09-06] MEDS: LASIX 40 MG PO (07:58)
[2024-09-06] MEDS: FLOMAX 0.4 MG PO (07:58)
[2024-09-06] MEDS: TRANDATE 300 MG PO (07:58)
[2024-09-06] MEDS: HEPARIN SC (08:06)
[2024-09-06 08:42] VITALS: BMI 30.7
[2024-09-06 10:18] VITALS: BP 133/106; BP_SYST 71
[2024-09-06 11:04] VITALS: BP 127/75
[2024-09-06 11:05] VITALS: BP 149/76
--- NOTE | 2024-09-06 11:12 | PTCARENOTE ---
Patient received in stretcher following thoracentesis in IR; Patient ambulated to chair without assistance; Patient denies pain at this time and offers no complaints; Call cadena within reach; Assessment ongoing
[2024-09-06 11:25] LABS: Body Fluid pH 7.49
[2024-09-06 11:35] LABS: Body Fluid Glucose 102 mg/dl; Body Fluid LDH 160 U/L; Body Fluid Protein 3.6 g/dl
[2024-09-06 11:55] LABS: Body Fluid Mononuclear 93.2 %; Body Fluid Polymorphonuclear 6.8 %; Body Fluid WBC 1441 /CUMM
[2024-09-06 12:13] LABS: Body Fluid Second Tech EF
--- NOTE | 2024-09-06 13:18 | W.DS.TRANS ---
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
-
Discharge Instructions:
Sleep Apnea Risk High
Discharge Diagnosis/Procedures Hypertensive urgency
Acute CHF preserved EF
Diet 2 Gram Sodium
Instructions: *PCP/Other [facility] Heart Failure Instructions
Stand-Alone Forms:
Changes to Home Medications: No
Discharge Medications:
DC Medications w/original date entered in [facility]
acetaminophen 500 mg tablet (Tylenol Extra Strength) 1,000 mg PO DAILYPRN PRN severe pain 02/20/24
acetaminophen 500 mg tablet (Tylenol Extra Strength) 500 mg PO DAILYPRN PRN mild pain 02/20/24
finasteride 5 mg tablet 5 mg PO DAILY Urinary Issue 02/20/24
folic acid 800 mcg tablet 0.8 mg PO DAILY Supplement 02/20/24
labetalol 300 mg tablet 300 mg PO TID Blood Pressure 02/20/24
losartan 25 mg tablet 25 mg PO BID Blood Pressure 02/20/24
magnesium 250 mg tablet 250 mg PO DAILY Supplement 02/20/24
spironolactone 25 mg tablet 25 mg PO DAILY Blood Pressure 02/20/24
aspirin 81 mg tablet,delayed release 81 mg PO DAILY Blood clot prevention/tx #90 tabs 02/23/24
cyanocobalamin (vitamin B-12) 1,000 mcg capsule 1,000 mcg PO DAILY Supplement #90 caps 02/23/24
furosemide 40 mg tablet 40 mg PO DAILY Fluid retention/Swelling #30 tabs 02/23/24
tamsulosin 0.4 mg capsule 0.4 mg PO HS Urinary issue #30 caps 02/23/24
thiamine HCl (vitamin B1) 100 mg tablet 100 mg PO DAILY Supplement #0 tabs 02/23/24
albuterol 90 mcg/actuation aerosol inhaler 1 mcg inhalation DAILY PRN shortness of breath 09/04/24
fluticasone fur. 100 mcg-umeclid 62.5 mcg-vilant 25 mcg inhalat.powder (Trelegy Ellipta) 1 inh inhalation DAILY asthma 09/04/24
Home Medication Changes
Pending Results: No
[2024-09-06] MEDS: TYLENOL 650 MG PO (13:36)
[2024-09-06 14:06] VITALS: BP 145/93
--- NOTE | 2024-09-06 14:39 | CM ---
Pt for discharge today
Has ride home with family member
Discussed IMM
Plan - anticipate home no needs
--- NOTE | 2024-09-07 09:36 | W.HF.CON ---
Heart Failure
- LV Function
Left ventricular function study result: LV Ejection fraction >/= 50% (ECHO 02/21/24)
Ejection Fraction Percentage: 65-70
- ARNI
Patient already on ARNI: No
Heart Failure ARNI Not Indicated: LV Ejection Fraction >/= 40%
- ACEI/ARB
Patient already on ACEI/ARB: Yes
- Beta Renee
Patient already on Evidence Based Beta Renee: No
Heart Failure Evidence Based Beta Renee Not Indicated: LV Ejection Fraction > 40%
- Mineralocorticord Receptor Antagonist
Patient already on MRA: Yes
- SGLT-2 Inhibitor
Patient already on SGLT-2 Inhibitor: No
Heart Failure SGLT-2 Inhibitor Not Indicated: LV Ejection Fraction >40%
- NYHA CHF Classification
NYHA CHF Classification Level: Class III - Symptoms w/ min exertion, interferes w/ nml daily activity
- ACC/AHA Stage
ACC/AHA Stage: Stage C: Symptomatic Heart Failure
== END 2024-09-06 15:21 | disposition home or self-care (01) | DRG 291 ==
LOC: 2 SOUTH 12:29
PROVIDERS: ADMITTING PHYSICIAN Internal Medicine
DX: I13.0 Hypertensive heart and chronic kidney disease with heart failure and stage 1 through stage 4 chronic kidney disease, or unspecified chronic kidney disease (principal); I50.33 Acute on chronic diastolic (congestive) heart failure; N13.8 Other obstructive and reflux uropathy; I16.0 Hypertensive urgency; I48.0 Paroxysmal atrial fibrillation; N18.2 Chronic kidney disease, stage 2 (mild); N40.1 Benign prostatic hyperplasia with lower urinary tract symptoms; N32.0 Bladder-neck obstruction; Z53.8 Procedure and treatment not carried out for other reasons; Z79.82 Long term (current) use of aspirin; Z79.899 Other long term (current) drug therapy
CPT/HCPCS: 32555; 71045; 71046; 80048; 82945; 83615; 83880; 83986; 84157; 85025; 87015; 87070; 87205; 89051

== ENCOUNTER 2024-10-02 06:27 | Day surgery (SDC) | payer MEDICARE, OTHER, SELFPAY ==
[2024-10-02] VITALS (18 sets, daily range): BP systolic 133–185; BP diastolic 72–94; BMI 31.5
[2024-10-02] MEDS: ALDACTONE 25 MG PO (14:59)
[2024-10-02] MEDS: TRANDATE 300 MG PO (15:32)
--- NOTE | 2024-10-02 17:30 | PTCARENOTE ---
Pt received into room 2108. Ox3 and appropriate. Admission assessment completed. M/S, HR irreg, trace ankle edema. Currently on RA, 97% sat, breath sounds clear. CBI running wide open on admit with near dark pink/ punch colored urine. Able to slow
down CBI slightly to maintain a dark pink shade of urine free of clots. Pt does not complain of any pain. Round ABD, pt ordered dinner. Call cadena within reach. Pt makes needs known. Family at bedside, all questions answered.
--- NOTE | 2024-10-02 19:10 | CON.HOSP ---
Family Physician
-
Family Physician: INTERVIEWE UNKNOWN - PT NOT
Chief Complaint
-
hematuria
History of Present Illness
79-year-old past medical history of hypertension, HFpEF, paroxysmal atrial fibrillation, CKD 2-3, BPH, chronic bladder outlet obstruction with chronic Hinton catheter, who underwent TURP today for hematuria with clots, urinary incontinence and
difficulty voiding.
Medical consult for chronic medical problems.
He denies any chest pain or shortness of breath. Denies any lower extreme edema. Denies any dizziness.
Denies any smoking or alcohol use.
Medical History
Past Medical History
Past Medical History: Reports Other (hypertension, HFpEF, paroxysmal atrial fibrillation, CKD 2-3, BPH, chronic bladder outlet obstruction with chronic Hinton catheter,)
Past Surgical History: Reports None
Social History
Tobacco: Non-smoker
Alcohol: None
Drug: None
Family History
Family History: Reviewed & Not Pertinent
Allergies / Home Medications
Allergies reflects when Allergies were last updated in [facility].
Home Medications with original date entered in [facility] [facility]
Allergy/Medication List:
Allergies
Allergy/AdvReac Type Severity Reaction Status Date / Time
No Known Allergies Allergy Verified 10/02/24 09:58
Home Medications
acetaminophen 500 mg tablet (Tylenol Extra Strength) 1,000 mg PO DAILYPRN PRN severe pain 02/20/24
finasteride 5 mg tablet 5 mg PO DAILY Urinary Issue 02/20/24
folic acid 800 mcg tablet 0.8 mg PO DAILY Supplement 02/20/24
labetalol 300 mg tablet 300 mg PO TID Blood Pressure 02/20/24
losartan 25 mg tablet 25 mg PO BID Blood Pressure 02/20/24
magnesium 250 mg tablet 250 mg PO DAILY Supplement 02/20/24
spironolactone 25 mg tablet 25 mg PO DAILY Blood Pressure 02/20/24
aspirin 81 mg tablet,delayed release 81 mg PO DAILY Blood clot prevention/tx #90 tabs 02/23/24
cyanocobalamin (vitamin B-12) 1,000 mcg capsule 1,000 mcg PO DAILY Supplement #90 caps 02/23/24
furosemide 40 mg tablet 40 mg PO DAILY Fluid retention/Swelling #30 tabs 02/23/24
thiamine HCl (vitamin B1) 100 mg tablet 100 mg PO DAILY Supplement #0 tabs 02/23/24
fluticasone fur. 100 mcg-umeclid 62.5 mcg-vilant 25 mcg inhalat.powder (Trelegy Ellipta) 1 inh inhalation DAILY asthma 09/04/24
albuterol sulfate 90 mcg/actuation aerosol inhaler 1 inh inhalation PRN PRN shortness of breath 10/01/24
Review of Systems
-
History Source: Patient
A 12 point Review of Systems was completed except as noted: Yes
Constitutional: Reports No Symptoms
EENT: Reports No Symptoms
Respiratory: Reports No Symptoms
Cardiac: Reports No Symptoms
Abdomen/GI: Reports No Symptoms
: Reports No Symptoms
Musculoskeletal: Reports No Symptoms
Skin: Reports No Symptoms
Neurological: Reports No Symptoms
Endocrine: Reports No Symptoms
Hematologic/Lymphatic: Reports No Symptoms
Psych: Reports No Symptoms
Physical Exam
Vital Signs
Vital Signs
Temp Pulse Resp BP Pulse Ox
96.9 F L 62 16 185/89 96
10/02/24 17:45 10/02/24 17:45 10/02/24 17:45 10/02/24 17:45 10/02/24 17:45
Physical Exam
General: Well Developed, Well Nourished and No Apparent Distress
HEENT: Normocephalic, Moist Mucous Membranes and Atraumatic
Respiratory: Clear
Cardiac: S1/S2 and Regular Rhythm; Negative Murmur or Rub
GI: Soft, Non Tender, Non Distended and Normal Bowel Sounds
Rectal: Deferred by Provider
Musculoskeletal: No Clubbing, No Cyanosis and No Edema
Skin: Negative Rash
Neuro: Nonfocal/Grossly Intact
Data Reviewed
-
Lab Data: Labs Reviewed
Old Records: Reviewed
Impression / Plan
-
IMPRESSION:
PLAN:
# Hematuria/urine incontinence with voiding difficulty secondary to BPH/chronic bladder outlet obstruction status post TURP
-Urology managing
-Hinton catheter in place undergoing CBI
-Continue finasteride
-Diet resumed
Chronic HFpEF
-No pulmonary cardiac symptoms, euvolemic
-Continue Lasix
-Continue spironolactone
Paroxysmal atrial fibrillation
-Continue aspirin
Essential HTN
CKD�2�3
-Renal function at baseline
DVT prophylaxis�SCDs
Regular diet
[2024-10-02] MEDS: SYMBICORT 80/4.5 MCG INHALER 2 PUFF INH (19:17)
[2024-10-02] MEDS: COZAAR 25 MG PO (20:16)
[2024-10-02 22:29] LABS: Hematocrit 35.1 % (39.0-52.0); Hemoglobin 11.7 g/dL (13.0-18.0); Mean Corp Hgb Conc. 33.3 g/dL (33.0-37.0); Mean Platelet Volume 11.2 fL (7.4-10.4); Platelet Count 178 10^3/uL (130-400); Red Blood Cell Count 4.18 10^6/uL (4.70-6.10); Red Cell Dist. Width 14.5 % (11.5-14.5); White Blood Cell Count 12.2 10^3/uL (4.8-10.8)
[2024-10-02] MEDS: TRANDATE PO (23:48)
[2024-10-03] MEDS: TYLENOL 650 MG PO (00:04)
[2024-10-03] MEDS: DETROL LA 4 MG PO (02:05)
[2024-10-03] MEDS: PERCOCET 5/325 1 TABLET PO (03:04)
[2024-10-03 03:57] VITALS: BP 189/101
[2024-10-03] MEDS: ZOFRAN 4 MG IV (04:38)
[2024-10-03] MEDS: TRANDATE 300 MG PO ×3 (04:56→23:01)
[2024-10-03 05:44] LABS: Hematocrit 35.9 % (39.0-52.0); Hemoglobin 11.7 g/dL (13.0-18.0); Mean Corp Hgb Conc. 32.6 g/dL (33.0-37.0); Mean Corpuscular Hgb 28.4 pg (27.0-31.0); Mean Corpuscular Volume 87.1 fL (80.0-94.0); Mean Platelet Volume 11.5 fL (7.4-10.4); Platelet Count 179 10^3/uL (130-400); Red Blood Cell Count 4.12 10^6/uL (4.70-6.10); Red Cell Dist. Width 14.6 % (11.5-14.5); White Blood Cell Count 15.1 10^3/uL (4.8-10.8)
[2024-10-03 06:07] LABS: Blood Urea Nitrogen 29 mg/dl (9-20); Calcium 9.3 mg/dl (8.4-10.2); Carbon Dioxide 24 mmol/L (22-30); Chloride 100 mmol/L (98-107); Estimated Creatinine Clearance 60 ml/min; Glucose 116 mg/dl (70-99); Potassium 4.5 mmol/L (3.5-5.1); Sodium 138 mmol/L (135-145); eGFR 56.58
[2024-10-03] MEDS: COZAAR 25 MG PO ×2 (06:32→20:05)
[2024-10-03] MEDS: LASIX 40 MG PO (06:35)
--- NOTE | 2024-10-03 07:25 | W.PN.HOSP.TC ---
Today's Communication/Plan
-
Stable, continue medications
Daily weights
Disposition as per urology
Assessment / Plan
Assessment / Plan
Physical Exam
General: Well Developed, Well Nourished and No Apparent Distress
HEENT: Normocephalic, Moist Mucous Membranes and Atraumatic
Respiratory: Clear
Cardiac: S1/S2 and Regular Rhythm; Negative Murmur or Rub
GI: Soft, Non Tender, Non Distended and Normal Bowel Sounds
Rectal: Deferred by Provider
Musculoskeletal: No Clubbing, No Cyanosis and No Edema
Skin: Negative Rash
Neuro: Nonfocal/Grossly Intact
Assessment/Plan
79-year-old past medical history of hypertension, HFpEF, paroxysmal atrial fibrillation, CKD 2-3, BPH, chronic bladder outlet obstruction with chronic Hinton catheter, who underwent TURP for hematuria with clots, urinary incontinence and difficulty
voiding.
Medical consult for chronic medical problems.
He denies any chest pain or shortness of breath. Denies any lower extreme edema. Denies any dizziness.
Denies any smoking or alcohol use.
# Hematuria/urine incontinence with voiding difficulty secondary to BPH/chronic bladder outlet obstruction status post TURP
-Urology managing
-Hinton catheter in place
-Continue finasteride
-Diet resumed
Chronic HFpEF
-No pulmonary cardiac symptoms, euvolemic
-Continue Lasix
-Continue spironolactone
-Daily weights, I's and O's
Paroxysmal atrial fibrillation
-Continue aspirin
Essential HTN
-Continue home Labetalol
-Continue home Losartan
CKD�2�3
-Renal function at baseline
DVT prophylaxis�SCDs
Regular diet
Anticipated Discharge: 24 - 48 hours
Subjective/Interval History
-
Date of Service: October 03, 2024
Patient was seen and examined. He denied any new symptoms.
Objective Data
-
Labs:
Laboratory Results
10/02/24 10/03/24
22:24 04:49
WBC 12.2 H 15.1 H
Hgb 11.7 L 11.7 L
Hct 35.1 L 35.9 L
Plt Count 178 179
Sodium 138
Potassium 4.5
Chloride 100
Carbon Dioxide 24
BUN 29 H
Creatinine 1.3
Glucose 116 H
Calcium 9.3
Vital Signs:
Vital Signs
Temp Pulse Resp BP Pulse Ox
98.1 F 70 20 190/95 96
10/03/24 03:57 10/03/24 06:35 10/03/24 03:57 10/03/24 06:35 10/03/24 03:57
I&O
10/02/24 10/03/24 10/04/24
06:59 06:59 06:59
Intake Total 2800 / 2800
Output Total 1850 / 1850 3300 / 3300
Balance 950 / 950 -3300 / -3300
[2024-10-03 07:30] VITALS: BP 173/82
[2024-10-03] MEDS: SPIRIVA RESPIMAT 2.5 MCG 2 PUFF INH (07:38)
[2024-10-03] MEDS: SYMBICORT 80/4.5 MCG INHALER 2 PUFF INH ×2 (07:38→20:06)
[2024-10-03] MEDS: ALDACTONE 25 MG PO (08:20)
[2024-10-03] MEDS: PROSCAR 5 MG PO (08:20)
[2024-10-03] MEDS: ASPIR LOW (ENTERIC COATED) 81 MG PO (08:20)
--- NOTE | 2024-10-03 08:42 | W.PN.URO.CBU ---
Today's Communication / Plan
-
Trend hematuria
Hospitalist recommendations
Possible discharge today
Assessment / Plan
-
79M POD 1 s/p TURP
- Trend hematuria with CBI clamped this AM
- Some blood around catheter per meatus is not uncommon after TURP - trend
- Possible discharge today
- Hospitalist recommendations for BP/CHF management
Diagnosis
-
Date of Service: October 03, 2024
-
Patient Diagnosis:
BPH
Urinary retention
CHF
Recurrent pleural effusion
HTN
Post Op Day:1 s/p TURP
Subjective
-
Some blood per meatus overnight
Catheter irrigated twice without a lot of clots
Feeling well this AM
HTN
Objective
-
Vital Signs
Temp Pulse Resp BP Pulse Ox
98.1 F 62 14 173/82 96
10/03/24 07:30 10/03/24 07:41 10/03/24 07:41 10/03/24 07:30 10/03/24 07:30
Intake and Output
10/02/24 10/03/24 10/04/24
06:59 06:59 06:59
Intake Total 2800 / 2800
Output Total 1850 / 1850 3300 / 3300
Balance 950 / 950 -3300 / -3300
Intake:
Oral fluids 2300 / 2300
IV fluids (Total) 500 / 500
NSS 100 / 100
IV piggybacks 0 / 0
Output:
True Urine Output from CBI 1850 / 1850 3300 / 3300
Other:
Number of approximated LARGE 1
amounts of urine
Laboratory Results
10/03/24 04:49
10/03/24 04:49
Physical Exam
-
General - well developed, well nourished, no acute distress
Chest - clear, unlabored off O2
Abdomen - soft, non-tender
cm in place with pink urine on CBI, no clots on irrigation
Extremities - no clubbing, no cyanosis, no edema
[2024-10-03 11:30] VITALS: BP 167/91
[2024-10-03 15:30] VITALS: BP 116/59
--- NOTE | 2024-10-03 15:59 | CM ---
Met with pt at bedside
Pt reports he lives with his in a 2 story home; ramp access at entrance, FF set-up
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
Independent with ADL's, drives
DME - rolling walker, shower chair, ramps - entrance, throughout home
SNF/HH - no hx
Has ride at discharge
PCP - [facility]
Pharm - [facility]
Plan - anticipate home no needs when medically ready
[2024-10-03 16:38] VITALS: BMI 31.5
[2024-10-03 23:46] VITALS: BP 123/62
[2024-10-04 06:00] VITALS: BMI 30.8
[2024-10-04 06:35] LABS: Hematocrit 33.5 % (39.0-52.0); Hemoglobin 10.7 g/dL (13.0-18.0); Mean Corp Hgb Conc. 31.9 g/dL (33.0-37.0); Mean Corpuscular Hgb 28.3 pg (27.0-31.0); Mean Corpuscular Volume 88.6 fL (80.0-94.0); Mean Platelet Volume 11.8 fL (7.4-10.4); Platelet Count 166 10^3/uL (130-400); Red Blood Cell Count 3.78 10^6/uL (4.70-6.10); Red Cell Dist. Width 14.7 % (11.5-14.5); White Blood Cell Count 10.9 10^3/uL (4.8-10.8)
[2024-10-04 06:51] LABS: Blood Urea Nitrogen 34 mg/dl (9-20); Calcium 8.8 mg/dl (8.4-10.2); Carbon Dioxide 28 mmol/L (22-30); Chloride 98 mmol/L (98-107); Estimated Creatinine Clearance 51 ml/min; Glucose 89 mg/dl (70-99); Potassium 4.2 mmol/L (3.5-5.1); Sodium 139 mmol/L (135-145); eGFR 47.65
[2024-10-04 07:00] VITALS: BP 141/73
[2024-10-04] MEDS: SPIRIVA RESPIMAT 2.5 MCG 2 PUFF INH (07:17)
[2024-10-04] MEDS: SYMBICORT 80/4.5 MCG INHALER 2 PUFF INH (07:17)
[2024-10-04 08:04] LABS: Magnesium 2.1 mg/dl (1.6-2.3)
[2024-10-04] MEDS: LASIX 40 MG PO (08:17)
[2024-10-04] MEDS: ASPIR LOW (ENTERIC COATED) 81 MG PO (08:17)
[2024-10-04] MEDS: TRANDATE 300 MG PO (08:17)
[2024-10-04] MEDS: ALDACTONE 25 MG PO (08:17)
[2024-10-04] MEDS: PROSCAR 5 MG PO (08:17)
[2024-10-04] MEDS: COZAAR 25 MG PO (08:17)
--- NOTE | 2024-10-04 10:51 | W.PN.URO.CBU ---
Today's Communication / Plan
-
Discharge
Assessment / Plan
-
79M POD 2 s/p TURP
- CBI clamped this AM, draining well with a few small clots irrigated. No active bleeding apparent
- Some blood around catheter per meatus is not uncommon after TURP
- Discharge today with cm in place
- Hospitalist recommendations for BP/CHF management
Follow up next week for trial of void
Diagnosis
-
Date of Service: October 04, 2024
-
Patient Diagnosis:
BPH
Urinary retention
CHF
Recurrent pleural effusion
HTN
Post Op Day:2 s/p TURP
Subjective
-
walked yesterday
bloating resolved
tolerating diet
blood per meatus improved
Objective
-
Vital Signs
Temp Pulse Resp BP Pulse Ox
97.8 F 62 16 141/73 95
10/04/24 07:00 10/04/24 07:21 10/04/24 07:21 10/04/24 07:00 10/04/24 08:00
Intake and Output
10/03/24 10/04/24 10/05/24
06:59 06:59 06:59
Intake Total 2800 / 2800 1260 / 1260
Output Total 1850 / 1849 6250 / 6250
Balance 950 / 950 -4990 / -4990
Intake:
Oral fluids 2300 / 2300 1260 / 1260
IV fluids (Total) 500 / 500
NSS 100 / 100
IV piggybacks 0 / 0
Output:
True Urine Output from CBI 1850 / 0 6250 / 6250
Other:
Number of approximated MODERATE 4
amounts of urine
Number of approximated LARGE 1
amounts of urine
Laboratory Results
10/04/24 04:54
10/04/24 04:54
Physical Exam
-
General - well developed, well nourished, no acute distress
Chest - clear
Abdomen - soft, non-tender
Cm in place, pink urine off CBI
--- NOTE | 2024-10-04 11:16 | CM ---
Pt for discharge today
Offered VN - declined
Has ride home when ready
Plan - home no needs
[2024-10-04 12:02] VITALS: BP 125/66
--- NOTE | 2024-10-04 12:55 | W.PN.HOSP.TC ---
Today's Communication/Plan
-
Stable
Discharge today as per urology
Assessment / Plan
Assessment / Plan
Physical Exam
General: Well Developed, Well Nourished and No Apparent Distress
HEENT: Normocephalic, Moist Mucous Membranes and Atraumatic
Respiratory: Clear
Cardiac: S1/S2 and Regular Rhythm
GI: Soft, Non Tender, Non Distended and Normal Bowel Sounds
Musculoskeletal: No Cyanosis and No Edema
Skin: Warm. Dry.
Neuro: Nonfocal/Grossly Intact
Assessment/Plan
79-year-old past medical history of hypertension, HFpEF, paroxysmal atrial fibrillation, CKD 2-3, BPH, chronic bladder outlet obstruction with chronic Hinton catheter, who underwent TURP for hematuria with clots, urinary incontinence and difficulty
voiding.
Medical consult for chronic medical problems.
He denies any chest pain or shortness of breath. Denies any lower extreme edema. Denies any dizziness.
Denies any smoking or alcohol use.
# Hematuria/urine incontinence with voiding difficulty secondary to BPH/chronic bladder outlet obstruction status post TURP
-Urology managing
-Hinton catheter in place
-Continue finasteride
-Diet resumed
Chronic HFpEF
-No pulmonary cardiac symptoms, euvolemic
-Continue Lasix
-Continue spironolactone
-Daily weights, I's and O's
Paroxysmal atrial fibrillation
-Continue aspirin
Essential HTN
-Blood pressure stable
-Continue home Labetalol
-Continue home Losartan
CKD�2�3
-Renal function at baseline
DVT prophylaxis�SCDs
Regular diet
Anticipated Discharge: Today
Subjective/Interval History
-
Date of Service: October 04, 2024
Patient was seen and examined. He denied chest pain, SOB or any other complaints.
Objective Data
-
Labs:
Laboratory Results
10/04/24
04:54
WBC 10.9 H
Hgb 10.7 L
Hct 33.5 L
Plt Count 166
Sodium 139
Potassium 4.2
Chloride 98
Carbon Dioxide 28
BUN 34 H
Creatinine 1.5 H
Glucose 89
Calcium 8.8
Vital Signs:
Vital Signs
Temp Pulse Resp BP Pulse Ox
97.6 F 78 18 125/66 98
10/04/24 12:02 10/04/24 12:02 10/04/24 12:02 10/04/24 12:02 10/04/24 12:02
I&O
10/03/24 10/04/24 10/05/24
06:59 06:59 06:59
Intake Total 2800 / 2800 1260 / 1260
Output Total 1850 / 1850 6250 / 6250
Balance 950 / 950 -4990 / -4990
== END 2024-10-04 13:09 | disposition home or self-care (01) ==
LOC: SDS 06:27
PROVIDERS: Hospitalist; ATTENDING PHYSICIAN Urology; CONSULT PHYSICIAN Hospitalist
DX: N40.1 Benign prostatic hyperplasia with lower urinary tract symptoms (principal); R33.8 Other retention of urine; N32.0 Bladder-neck obstruction; R31.0 Gross hematuria
CPT/HCPCS: 52601; 88305; 80048; 83735; 85027; 94640

== ENCOUNTER 2024-10-07 11:07 | Emergency (ER) | payer MEDICARE, OTHER, SELFPAY ==
[2024-10-07 11:16] VITALS: BP 129/64
--- NOTE | 2024-10-07 12:38 | ED.GENMED ---
History of Present Illness
General
Chief Complaint: Catheter/Tube Problem
Source: patient
Exam Limitations: none
Time Seen by Provider: 10/07/24 11:25
Nursing documentation reviewed up to this point in time: agreed with
History of Present Illness
History of Present Illness:
Patient is a 79-year-old male with PMH of CHF, CKD stage 2 to 3, BPH, htn who presents to the ER for evaluation. Patient recently had a TURP on October 02 and has had a three-way catheter him. He reports urine was not draining today. He has had
hematuria which is not new since having the TURP. This was done by Dr. Humphrey.
Prior to my evaluation however patient's urine started to drain nurse did still irrigate. Patient was not retaining via bladder scan and is feeling much better now. He denies any recent fevers. Patient is not on anticoagulation.
Past History
Past History
ED Past Medical History: HTN
ED Past Surgical History: None
Patient has exhibited threatening behavior?: No
PSI?: No
Social History
Tobacco: Non-smoker
Alcohol: Occasional
Drug: None
Personal:
Living: with family
Employment: Retired
Review of Systems
Review of Systems
Allergies reviewed?: Yes
All Other Systems: ROS reviewed and negative except as documented in HPI and ROS
Constitutional: Reports no symptoms; Denies fever, fatigue or chills
Respiratory: Reports no symptoms
Cardiac: Reports no symptoms
ABD/GI: Reports no symptoms
: Reports other (cm catheter not draining )
Musculoskeletal: Reports no symptoms; Denies back pain
Skin: Reports no symptoms
Neurological: Reports no symptoms
Psychiatric: Reports no symptoms
Phy Exam
General Physical Exam
General Presentation: well appearing
General age: appears stated age
General Skin: warm and dry
General Habitus: normal
General Mental: alert
General Hydration: appears well hydrated
Gastrointestinal Exam
Gastrointestinal Exam: non tender and soft
Genitourinary Exam Male
Exam Male: circumcised and other (cm draining bloody urine (normal since TURP ) )
Neurological Exam
Neurological Exam: alert and oriented x3
Musculoskeletal Exam
Musculoskeletal Exam: full ROM
Skin Exam
Skin Exam: normal color and warm/dry
Psychiatric Exam
Psychiatric Exam: normal mood/affect
Course
Orders/Labs/Results
Orders:
Orders
10/07/24 12:38
IV Insert/Care/Rem.- Treatment PRN
10/07/24 12:49
Complete Blood Count/With Diff Urgent
Comprehensive Metabolic Panel Urgent
Abnormal Lab Results
10/07/24
12:49
WBC 12.0 H 10^3/uL
(4.8-10.8)
RBC 3.65 L 10^6/uL
(4.70-6.10)
Hgb 10.3 L g/dL
(13.0-18.0)
Hct 30.9 L %
(39.0-52.0)
RDW 14.6 H %
(11.5-14.5)
MPV 10.7 H fL
(7.4-10.4)
Abs Immat Gran (auto) 0.1 H 10^3/uL
(0-0.05)
Absolute Neuts (auto) 9.5 H 10^3/uL
(1.4-6.5)
Absolute Monos (auto) 0.9 H 10^3/uL
(0.1-0.6)
Neutrophils % 79.1 H %
(42.2-75.2)
Lymphocytes % 9.9 L %
(20.5-51.1)
BUN 32 H mg/dl
(9-20)
Creatinine 1.7 H mg/dL
(0.7-1.3)
10/07/24 12:49
10/07/24 12:49
Vital Signs
Initial and Last Documented VS:
Initial Vital Signs
Temp Pulse Resp BP Pulse Ox
99.1 F 71 18 129/64 98
10/07/24 11:16 10/07/24 11:16 10/07/24 11:16 10/07/24 11:16 10/07/24 11:16
Last Documented Vital Signs
Temp Pulse Resp BP Pulse Ox
99.1 F 71 18 129/64 98
10/07/24 11:16 10/07/24 11:16 10/07/24 11:16 10/07/24 11:16 10/07/24 11:16
MDM/Problems Addressed
Differential Diagnosis Includes:
not limited to hematuria; urinary retention
MDM/Problems Addressed:
Patient presented with complaints of Cm catheter not draining. He has had hematuria since his TURP October 02 this is not new. Catheter start draining spontaneously but nurse told still irrigate. Patient was not found to be retaining. Labs
checked no fevers patient has chronic kidney disease creatinine reviewed 1.7 was 1.53 days ago. White blood cell 12.0 however nontoxic and again no fevers. Patient has not had any abdominal pain. Patient's catheter has been functioning normally
here in the ER will DC home with urology follow-up
Chronic conditions affecting care:
Prostate enlargement; cm
*Critical Care Note
Total Time (30-74mins, 75-104mins- exclusive of procedures): Not Applicable
ED Attending Note
-
Portions of this chart may have been created with voice recognition software.� Occasional wrong word or��sound alike� substitutions may have occurred due to the inherent limitations of voice recognition software.
Discharge Plan
Departure
Patient Disposition: Home (Routine Discharge)
Date of Disposition: 10/07/24
Time of Disposition: 13:35
Patient with high blood pressure during this ER visit?: No
Condition: Fair
Covid-19: Not Applicable
Discharge Problem:
Complication, blocked Cm catheter
Instructions: How to Care for Your Cm Catheter, Male
Prescriptions:
No Action
spironolactone 25 mg Tablet
25 mg PO DAILY
losartan 25 mg Tablet
25 mg PO BID
magnesium 250 mg Tablet
250 mg PO DAILY
labetalol 300 mg Tablet
300 mg PO TID
finasteride 5 mg Tablet
5 mg PO DAILY
acetaminophen [Tylenol Extra Strength] 500 mg Tablet
1,000 mg PO DAILYPRN PRN (Reason: severe pain)
folic acid 800 mcg Tablet
0.8 mg PO DAILY
furosemide 40 mg Tablet
40 mg PO DAILY Qty: 30 0RF
thiamine HCl (vitamin B1) 100 mg Tablet
100 mg PO DAILY Qty: 0 0RF
aspirin 81 mg Tablet,Delayed Release (Dr/Ec)
81 mg PO DAILY Qty: 90 0RF
cyanocobalamin (vitamin B-12) 1,000 mcg capsule
1,000 mcg PO DAILY Qty: 90 0RF
Trelegy Ellipta 100-62.5-25 mcg Blister With Device
1 inh INHALATION DAILY
albuterol sulfate 90 mcg/actuation Hfa Aerosol Inhaler
1 inh INHALATION PRN PRN (Reason: shortness of breath)
Referrals:
Clarke Humphrey MD [Active] -
UNKNOWN - PT DOES,NOT KNOW [Family Provider] -
Activity Restrictions/Additional Instructions:
Follow-up with urology as scheduled. Return if any worsening of symptoms.
Interventions
Interventions:
*Risk Screen - Suicide Last Done: 10/07/24 11:16
*General Assessment Last Done: 10/07/24 11:16
*Neglect/Abuse Screening Last Done: 10/07/24 11:16
*ED COVID-19 Vaccine History Last Done: 10/07/24 12:08
PL-Xzuqoa-Olyzhgteln Assessment Last Done: 10/07/24 12:08
ED-Male Genitourinary Assessment Last Done: 10/07/24 12:08
Discharge Date and Time
Print Language: JAMA[place]
[2024-10-07 13:11] LABS: % Basophils 0.2 % (0-2); % Eosinophils 3.2 % (0-6); % Immature Granulocytes 0.5 % (0-0.5); % Lymphocytes 9.9 % (20.5-51.1); % Monocytes 7.1 % (1.7-9.3); % Neutrophils 79.1 % (42.2-75.2); Absolute Eosinophils 0.4 10^3/uL (0-0.7); Absolute Immature Granulocytes 0.1 10^3/uL (0-0.05); Absolute Lymphocytes 1.2 10^3/uL (1.2-3.4); Absolute Monocytes 0.9 10^3/uL (0.1-0.6); Absolute Neutrophils 9.5 10^3/uL (1.4-6.5); Hematocrit 30.9 % (39.0-52.0); Hemoglobin 10.3 g/dL (13.0-18.0); Mean Corp Hgb Conc. 33.3 g/dL (33.0-37.0); Mean Corpuscular Hgb 28.2 pg (27.0-31.0); Mean Corpuscular Volume 84.7 fL (80.0-94.0); Mean Platelet Volume 10.7 fL (7.4-10.4); Nucleated Red Blood Cells % 0 % (-); Platelet Count 189 10^3/uL (130-400); Red Blood Cell Count 3.65 10^6/uL (4.70-6.10); Red Cell Dist. Width 14.6 % (11.5-14.5)
[2024-10-07 13:15] LABS: ALT (SGPT) 19 U/L (0-50); AST (SGOT) 19 U/L (17-59); Albumin 4.4 g/dl (3.5-5.0); Alkaline Phosphatase 65 U/L (38-126); Blood Urea Nitrogen 32 mg/dl (9-20); Calcium 9.2 mg/dl (8.4-10.2); Carbon Dioxide 29 mmol/L (22-30); Chloride 98 mmol/L (98-107); Glucose 97 mg/dl (70-99); Potassium 4.2 mmol/L (3.5-5.1); Sodium 137 mmol/L (135-145); Total Bilirubin 0.5 mg/dl (0.2-1.3); eGFR 41.01
== END 2024-10-07 13:44 | disposition home or self-care (01) ==
LOC: EMR 11:07
PROVIDERS: Nurse Practitioner; EMERGENCY PHYSICIAN Emergency Medicine
DX: T83.091A Other mechanical complication of indwelling urethral catheter, initial encounter (principal); Y84.9 Medical procedure, unspecified as the cause of abnormal reaction of the patient, or of later complication, without mention of misadventure at the time of the procedure; I13.0 Hypertensive heart and chronic kidney disease with heart failure and stage 1 through stage 4 chronic kidney disease, or unspecified chronic kidney disease; I50.9 Heart failure, unspecified; N18.2 Chronic kidney disease, stage 2 (mild); N40.0 Benign prostatic hyperplasia without lower urinary tract symptoms
CPT/HCPCS: 99283; 80053; 85025

== ENCOUNTER → 2024-10-19 11:09 | Outpatient (REF) | payer MEDICARE, OTHER, SELFPAY | LOC: HWRAD 11:09 | PROVIDERS: ATTENDING PHYSICIAN Internal Medicine Critical Care Medicine; FAMILY PHYSICIAN Nurse Practitioner Adult Health | DX: J90 Pleural effusion, not elsewhere classified (principal) | CPT/HCPCS: 71046 ==

== ENCOUNTER 2024-10-23 18:09 | Emergency (ER) | payer MEDICARE, OTHER, SELFPAY ==
[2024-10-23 18:13] VITALS: BP 152/92
[2024-10-23 18:27] LABS: % Basophils 0.2 % (0-2); % Eosinophils 2.5 % (0-6); % Immature Granulocytes 0.5 % (0-0.5); % Lymphocytes 14.2 % (20.5-51.1); % Monocytes 8.2 % (1.7-9.3); % Neutrophils 74.4 % (42.2-75.2); Absolute Eosinophils 0.2 10^3/uL (0-0.7); Absolute Immature Granulocytes 0.1 10^3/uL (0-0.05); Absolute Lymphocytes 1.4 10^3/uL (1.2-3.4); Absolute Monocytes 0.8 10^3/uL (0.1-0.6); Absolute Neutrophils 7.2 10^3/uL (1.4-6.5); Hematocrit 30.2 % (39.0-52.0); Hemoglobin 9.5 g/dL (13.0-18.0); Mean Corp Hgb Conc. 31.5 g/dL (33.0-37.0); Mean Corpuscular Hgb 26.6 pg (27.0-31.0); Mean Corpuscular Volume 84.6 fL (80.0-94.0); Mean Platelet Volume 10.2 fL (7.4-10.4); Nucleated Red Blood Cells % 0 % (-); Platelet Count 191 10^3/uL (130-400); Red Blood Cell Count 3.57 10^6/uL (4.70-6.10); Red Cell Dist. Width 14.6 % (11.5-14.5); White Blood Cell Count 9.7 10^3/uL (4.8-10.8)
[2024-10-23 18:51] LABS: ALT (SGPT) 17 U/L (0-50); AST (SGOT) 21 U/L (17-59); Albumin 4.5 g/dl (3.5-5.0); Alkaline Phosphatase 87 U/L (38-126); Blood Urea Nitrogen 28 mg/dl (9-20); Calcium 9.4 mg/dl (8.4-10.2); Carbon Dioxide 27 mmol/L (22-30); Chloride 96 mmol/L (98-107); Glucose 108 mg/dl (70-99); Potassium 4.5 mmol/L (3.5-5.1); Sodium 135 mmol/L (135-145); Total Bilirubin 0.4 mg/dl (0.2-1.3); Total Protein 7.2 g/dl (6.3-8.2); eGFR 41.01
[2024-10-23 18:53] LABS: Troponin I < 0.012 ng/ml
--- NOTE | 2024-10-23 20:54 | ED.GENMED ---
History of Present Illness
General
Chief Complaint: Heart Rate Problem
Time Seen by Provider: 10/23/24 20:29
History of Present Illness
History of Present Illness:
Patient is a 79-year-old male with a history of paroxysmal atrial fibrillation, BPH status post TURP, CHF, hypertension, who presents to the emergency department with fluttering in his chest and abnormal heart rate. States that this started a few
days ago. He feels that there is a 'empty' feeling in his chest. Associated with mild dyspnea. Denies chest pain. Endorses lower extremity that is slightly worse than his baseline.
Past History
Past History
ED Past Medical History: HTN
ED Past Surgical History: None
Patient has exhibited threatening behavior?: No
PSI?: No
Social History
Tobacco: Non-smoker
Alcohol: Occasional
Drug: None
Personal:
Living: with family
Employment: Retired
Phy Exam
Physical Exam
Physical Exam:
GENERAL APPEARANCE: NAD, well developed/ well nourished
EYES lids/conjunctiva normal
EARS/NOSE/THROAT Mucous membranes moist, uvula midline without oral pharyngeal erythema, exudate or swelling
HEAD/NECK normocephalic atraumatic, neck is supple.
RESPIRATORY respiratory effort normal, speaks in full sentences, no accessory muscle use. Diminished breath sounds at left base
CARDIAC irregularly irregular, 2+ pitting edema to lower extremities
ABDOMINAL Soft, ND/NT. No pulsatile masses on exam, rebound tenderness, Hayden sign or pain over Mcburney's point.
MUSCLES/EXTREMITIES No abnormal range of motion, no swelling.
SKIN Warm, pink and dry. No rashes
NEUROLOGICAL Speech is clear and appropriate. Normal level of consciousness. 5/5 strength in all extremities.
PSYCH Normal mood and affect. Judgement/competence is appropriate
Course
Orders/Labs/Results
Orders:
Orders
10/23/24 18:09
EKG [Electrocardiogram (*1)] Urgent
Reason for Study: Palpitations
EKG- Treatment ONCE
10/23/24 18:21
Complete Blood Count/With Diff Urgent
Comprehensive Metabolic Panel Urgent
NT-proBNP Urgent
Comment: ADD ON
Troponin I Urgent
10/23/24 20:50
CR Chest - 2 Views Urgent
Comment:
Reason For Exam: sob
10/23/24 20:54
Add On- LAB Urgent
Tests Added?: bnp
10/23/24 21:58
Apixaban [Eliquis] 5 mg PO ONCE ONE
Abnormal Lab Results
10/23/24
18:21
RBC 3.57 L 10^6/uL
(4.70-6.10)
Hgb 9.5 L g/dL
(13.0-18.0)
Hct 30.2 L %
(39.0-52.0)
MCH 26.6 L pg
(27.0-31.0)
MCHC 31.5 L g/dL
(33.0-37.0)
RDW 14.6 H %
(11.5-14.5)
Abs Immat Gran (auto) 0.1 H 10^3/uL
(0-0.05)
Absolute Neuts (auto) 7.2 H 10^3/uL
(1.4-6.5)
Absolute Monos (auto) 0.8 H 10^3/uL
(0.1-0.6)
Lymphocytes % 14.2 L %
(20.5-51.1)
Chloride 96 L mmol/L
(98-107)
BUN 28 H mg/dl
(9-20)
Creatinine 1.7 H mg/dL
(0.7-1.3)
Glucose 108 H mg/dl
(70-99)
10/23/24 18:21
10/23/24 18:21
Vital Signs
Initial and Last Documented VS:
Initial Vital Signs
Temp Pulse Resp BP Pulse Ox
98.9 F 64 18 152/92 99
10/23/24 18:13 10/23/24 18:13 10/23/24 18:13 10/23/24 18:13 10/23/24 18:13
Last Documented Vital Signs
Temp Pulse Resp BP Pulse Ox
98.9 F 60 15 175/78 96
10/23/24 18:13 10/23/24 22:15 10/23/24 22:00 10/23/24 22:00 10/23/24 22:15
*Critical Care Note
Total Time (30-74mins, 75-104mins- exclusive of procedures): Not Applicable
ED Attending Note
ED Attending Note
ED Attending Note:
Patient presents in atrial fibrillation. Rate is controlled, hemodynamically stable. He likely comes in and out of this frequently and typically he does not have symptoms during atrial fibrillation. He is not anticoagulated as he has declined
this in the past. He has a chronic left pleural effusion. He is saturating well on room air and is in no respiratory distress. Of note, patient's hemoglobin has been trending downward though he states that he had previously been having hematuria
related to his TURP that is now resolved. Denies any bloody stools or black stools. There is also likely component of anemia of chronic disease from his renal function which is at his baseline. Will obtain chest x-ray to assess his pleural
effusion. Patient does not want to be admitted. Would be reasonable to start anticoagulation with close outpatient follow-up.
-
Portions of this chart may have been created with voice recognition software.� Occasional wrong word or��sound alike� substitutions may have occurred due to the inherent limitations of voice recognition software.
Discharge Plan
Departure
Patient Disposition: Home (Routine Discharge)
Date of Disposition: 10/23/24
Time of Disposition: 22:01
Patient with high blood pressure during this ER visit?: Yes
Discharge Problem:
Atrial fibrillation, Chronic pleural effusion
Prescriptions:
New
Eliquis 5 mg tablet
5 mg PO BID Qty: 60 0RF
No Action
spironolactone 25 mg Tablet
25 mg PO DAILY
losartan 25 mg Tablet
25 mg PO BID
magnesium 250 mg Tablet
250 mg PO DAILY
labetalol 300 mg Tablet
300 mg PO TID
finasteride 5 mg Tablet
5 mg PO DAILY
acetaminophen [Tylenol Extra Strength] 500 mg Tablet
1,000 mg PO DAILYPRN PRN (Reason: severe pain)
folic acid 800 mcg Tablet
0.8 mg PO DAILY
furosemide 40 mg Tablet
40 mg PO DAILY Qty: 30 0RF
thiamine HCl (vitamin B1) 100 mg Tablet
100 mg PO DAILY Qty: 0 0RF
aspirin 81 mg Tablet,Delayed Release (Dr/Ec)
81 mg PO DAILY Qty: 90 0RF
cyanocobalamin (vitamin B-12) 1,000 mcg capsule
1,000 mcg PO DAILY Qty: 90 0RF
Trelegy Ellipta 100-62.5-25 mcg Blister With Device
1 inh INHALATION DAILY
albuterol sulfate 90 mcg/actuation Hfa Aerosol Inhaler
1 inh INHALATION PRN PRN (Reason: shortness of breath)
Referrals:
Jada Marquez MD [Family Provider] -
Activity Restrictions/Additional Instructions:
Follow-up with your primary doctor as scheduled tomorrow. Please take the Eliquis as prescribed. Please come to the emergency department with any signs of significant bleeding or worsening symptoms
Interventions
Interventions:
*Risk Screen - Suicide Last Done: 10/23/24 22:21
*General Assessment Last Done: 10/23/24 22:21
*Neglect/Abuse Screening Last Done: 10/23/24 22:21
ED- Fall Risk Assessment Last Done: 10/23/24 20:19
*Nursing Disposition Last Done: 10/23/24 22:21
ED- Cardiac Assessment Last Done: 10/23/24 20:19
ED- Pulmonary Assessment Last Done: 10/23/24 20:19
Discharge Date and Time
Discharge Date/Time: 10/23/24 22:22
Print Language: THAI
[2024-10-23 21:41] LABS: NT-proBNP 4100 pg/ml
[2024-10-23 21:47] VITALS: BP 171/85
[2024-10-23 22:00] VITALS: BP 175/78
[2024-10-23] MEDS: ELIQUIS 5 MG PO (22:17)
== END 2024-10-23 22:22 | disposition home or self-care (01) ==
LOC: EMR 18:09
PROVIDERS: Emergency Medicine; EMERGENCY PHYSICIAN Emergency Medicine; FAMILY PHYSICIAN Family Medicine
DX: I48.0 Paroxysmal atrial fibrillation (principal); J90 Pleural effusion, not elsewhere classified; I11.0 Hypertensive heart disease with heart failure; I50.9 Heart failure, unspecified
CPT/HCPCS: 99285; 71046; 80053; 83880; 84484; 85025; 93005

== ENCOUNTER → 2024-11-20 09:26 | Outpatient (REF) | payer MEDICARE, OTHER, SELFPAY | LOC: RAD 09:26 | PROVIDERS: ATTENDING PHYSICIAN Internal Medicine Cardiovascular Disease; FAMILY PHYSICIAN Family Medicine | DX: R20.0 Anesthesia of skin (principal); R29.898 Other symptoms and signs involving the musculoskeletal system | CPT/HCPCS: 93922; 93925 ==

== ENCOUNTER → 2025-01-25 09:46 | Outpatient (REF) | payer MEDICARE, OTHER, SELFPAY | LOC: HWRAD 09:46 | PROVIDERS: ATTENDING PHYSICIAN Urology; FAMILY PHYSICIAN Family Medicine | DX: R31.0 Gross hematuria (principal); N13.39 Other hydronephrosis; R33.9 Retention of urine, unspecified | CPT/HCPCS: 76770 ==

== ENCOUNTER 2025-04-05 20:02 | Emergency (ER) | payer MEDICARE, OTHER, SELFPAY ==
[2025-04-05 20:08] VITALS: BP 176/99
[2025-04-05 21:05] VITALS: BP 184/92
--- NOTE | 2025-04-05 21:28 | ED.GENMED ---
History of Present Illness
General
Chief Complaint: Blood Pressure Problem
Source: patient
Exam Limitations: none
Time Seen by Provider: 04/05/25 21:16
History of Present Illness
History of Present Illness:
See MDM
Past History
Past History
ED Past Medical History: HTN
ED Past Surgical History: None
Patient has exhibited threatening behavior?: No
PSI?: No
Social History
Tobacco: Non-smoker
Alcohol: Occasional
Drug: None
Personal:
Living: with family
Employment: Retired
Phy Exam
Physical Exam
Physical Exam:
See MDM
Course
Orders/Labs/Results
Orders:
Orders
04/05/25 20:05
EKG [Electrocardiogram (*1)] Urgent
Reason for Study: Hypertension, Benign
04/05/25 20:06
EKG- Treatment ONCE
04/05/25 21:27
HydrALAZINE [Apresoline] 10 mg IV NOW STA
04/05/25 21:46
Complete Blood Count/With Diff Urgent
Comprehensive Metabolic Panel Urgent
04/06/25 00:00
CT Head W/o Iv Contrast Urgent
Reason For Exam: headache
Abnormal Lab Results
04/05/25
21:46
WBC 12.5 H 10^3/uL
(4.8-10.8)
RBC 4.21 L 10^6/uL
(4.70-6.10)
Hgb 11.0 L g/dL
(13.0-18.0)
Hct 33.4 L %
(39.0-52.0)
MCV 79.3 L fL
(80.0-94.0)
MCH 26.1 L pg
(27.0-31.0)
MCHC 32.9 L g/dL
(33.0-37.0)
RDW 15.9 H %
(11.5-14.5)
MPV 11.1 H fL
(7.4-10.4)
Abs Immat Gran (auto) 0.1 H 10^3/uL
(0-0.05)
Absolute Neuts (auto) 10.5 H 10^3/uL
(1.4-6.5)
Absolute Lymphs (auto) 1.1 L 10^3/uL
(1.2-3.4)
Absolute Monos (auto) 0.7 H 10^3/uL
(0.1-0.6)
Neutrophils % 84.6 H %
(42.2-75.2)
Lymphocytes % 8.4 L %
(20.5-51.1)
Sodium 134 L mmol/L
(135-145)
BUN 24 H mg/dl
(9-20)
Creatinine 1.4 H mg/dL
(0.7-1.3)
Glucose 130 H mg/dl
(70-99)
04/05/25 21:46
04/05/25 21:46
Vital Signs
Initial and Last Documented VS:
Initial Vital Signs
Temp Pulse Resp BP Pulse Ox
98.0 F 67 17 176/99 98
04/05/25 20:08 04/05/25 20:08 04/05/25 20:08 04/05/25 20:08 04/05/25 20:08
Last Documented Vital Signs
Temp Pulse Resp BP Pulse Ox
98.0 F 56 12 157/73 98
04/05/25 20:08 04/06/25 01:00 04/06/25 01:00 04/06/25 00:04 04/05/25 20:08
MDM/Problems Addressed
Differential Diagnosis Includes:
HPI and MDM Narrative:
80-year-old male presenting for evaluation of headache and elevated blood pressure. He noticed a headache yesterday. Patient also noticed that his blood pressure was out of control. He denies any changes in medications recently.
On exam, he is well-appearing nontoxic. Given the headache, age and being on Eliquis, will obtain CT head. Will obtain blood work to rule out any evidence of endorgan damage. Patient has a history of A-fib and heart rate in the 60s. There is
little to no wiggle room in his labetalol dosing due to his bradycardia. He does have Lasix and spironolactone that he also takes. He also indicates that he is on 25 mg of losartan daily.
Will give dose of hydralazine to lower his blood pressure to see if that helps with his symptoms.
If patient feeling better and no significant lab issues, will consider doubling losartan until speak to his doctor
Physical exam
General: Well appearing and non-toxic
HEENT: protecting airway
Neck: appears supple
CV: No evidence of cyanosis. Bradycardic and irregular
Resp: No accessory muscle use. Lungs clear
Abd: Non-distended
Extremities: Nonpitting lower leg edema. Chronic per patient
Neuro: alert
Psych: Normal affect
Skin: Intact
Problems Addressed including Acute and Chronic Conditions affecting care:
1. Hypertension
Acuity: acute
Prognosis: unstable
Details: Will give dose of IV hydralazine. Will obtain blood work to rule out evidence of endorgan damage
2. Headache
Acuity: acute
Prognosis: stable
Details: Will obtain CT head given age and being on Eliquis
3. [ ]
Acuity: acute
Prognosis: stable
Details:
4. [ ]
Acuity: acute
Prognosis: stable
Details:
5. [ ]
Acuity:
Prognosis:
Details:
Updates
After hydralazine, blood pressure improved and patient feeling better. Nursing was able to perform med rec and realized that he is presently taking losartan 25 mg twice a day. Only takes it daily. Patient also indicates that he stopped taking his
Eliquis 3 months ago and understands the stroke risk
Differential Diagnosis (but not limited to): Symptomatic hypertension, hypertension emergency, acute kidney injury
Testing considered: Troponin but denies chest pain or shortness of breath
Drug therapy (if applicable): OTC meds, please see d/c instruction regarding Rx drugs
Amount and/or Complexity of Data Reviewed
Clinical info obtained from: Patient
External data reviewed: N/A
Labs I independently reviewed (but not limited to): [ ]
Radiology: N/A
Pulse Ox: not hypoxic
EKG independently reviewed: A-fib, normal axis, no STEMI
Change Management Consultant: Rate controlled A-fib
Critical Care: N/A
Risk of Complication:
Social Determinants of health: Good social support
Discussed with other providers: N/A
Escalation of Care includes Admit/Obs: After being observed in the Emergency Department, pt stable for discharge.
Occasional wrong word or 'sound a like' substitutions may have occurred due to the inherent limitations of voice recognition software. Read the chart carefully and recognize, using context, where substitutions have occurred.
*Critical Care Note
Total Time (30-74mins, 75-104mins- exclusive of procedures): Not Applicable
ED Attending Note
-
Portions of this chart may have been created with voice recognition software.� Occasional wrong word or��sound alike� substitutions may have occurred due to the inherent limitations of voice recognition software.
Discharge Plan
Departure
Patient Disposition: Home (Routine Discharge)
Date of Disposition: 04/06/25
Time of Disposition: 01:09
Patient with high blood pressure during this ER visit?: Yes
Discharge Problem:
Hypertension
Instructions: High Blood Pressure (DC), BLOOD PRESSURE
Prescriptions:
New
hydralazine 25 mg tablet
25 mg PO ONCE Qty: 14 0RF
No Action
spironolactone 25 mg Tablet
25 mg PO DAILY
losartan 25 mg Tablet
25 mg PO DAILY
Patient Comments:
BID in computer but pt thinks he takes it only once a day
magnesium 250 mg Tablet
250 mg PO DAILY
labetalol 300 mg Tablet
300 mg PO TID
finasteride 5 mg Tablet
5 mg PO DAILY
acetaminophen [Tylenol Extra Strength] 500 mg Tablet
1,000 mg PO DAILYPRN PRN (Reason: severe pain)
folic acid 800 mcg Tablet
0.8 mg PO DAILY
furosemide 40 mg Tablet
40 mg PO DAILY Qty: 30 0RF
thiamine HCl (vitamin B1) 100 mg Tablet
100 mg PO DAILY Qty: 0 0RF
aspirin 81 mg Tablet,Delayed Release (Dr/Ec)
81 mg PO DAILY Qty: 90 0RF
cyanocobalamin (vitamin B-12) 1,000 mcg capsule
1,000 mcg PO DAILY Qty: 90 0RF
albuterol sulfate 90 mcg/actuation Hfa Aerosol Inhaler
1 inh INHALATION PRN PRN (Reason: shortness of breath)
Referrals:
Jada Marquez MD [Family Provider] -
Activity Restrictions/Additional Instructions:
Please return for any worsening symptoms.
You may return at any time if you have further concerns.
Please follow up with your doctor at the first available appointment, preferably this week.
As we discussed, please start taking your 25 mg losartan twice a day now.
If your blood pressure during the middle of the day is greater than 160/90, please take a dose of the hydralazine. This will control your blood pressure enough until you and your doctor can reassess your medications.
Thank you for choosing [facility].
Interventions
Interventions:
*Risk Screen - Suicide Last Done: 04/05/25 20:08
*General Assessment Last Done: 04/05/25 20:08
*Neglect/Abuse Screening Last Done: 04/05/25 20:08
*ED- Fall Risk Assessment Last Done: 04/05/25 21:48
ED- Cardiac Assessment Last Done: 04/05/25 22:00
ED- Neurological Assessment Last Done: 04/05/25 22:00
ED- Pulmonary Assessment Last Done: 04/05/25 22:00
Discharge Date and Time
Print Language: [place]
[2025-04-05 21:36] VITALS: BMI 32.6
[2025-04-05 21:47] VITALS: BP 169/84
[2025-04-05] MEDS: APRESOLINE 10 MG IV (21:50)
[2025-04-05 21:56] LABS: % Basophils 0.2 % (0-2); % Eosinophils 0.9 % (0-6); % Immature Granulocytes 0.4 % (0-0.5); % Lymphocytes 8.4 % (20.5-51.1); % Monocytes 5.5 % (1.7-9.3); % Neutrophils 84.6 % (42.2-75.2); Absolute Eosinophils 0.1 10^3/uL (0-0.7); Absolute Immature Granulocytes 0.1 10^3/uL (0-0.05); Absolute Lymphocytes 1.1 10^3/uL (1.2-3.4); Absolute Monocytes 0.7 10^3/uL (0.1-0.6); Absolute Neutrophils 10.5 10^3/uL (1.4-6.5); Hematocrit 33.4 % (39.0-52.0); Mean Corp Hgb Conc. 32.9 g/dL (33.0-37.0); Mean Corpuscular Hgb 26.1 pg (27.0-31.0); Mean Corpuscular Volume 79.3 fL (80.0-94.0); Mean Platelet Volume 11.1 fL (7.4-10.4); Nucleated Red Blood Cells % 0 % (-); Platelet Count 183 10^3/uL (130-400); Red Blood Cell Count 4.21 10^6/uL (4.70-6.10); Red Cell Dist. Width 15.9 % (11.5-14.5); White Blood Cell Count 12.5 10^3/uL (4.8-10.8)
[2025-04-05 22:00] VITALS: BP 154/72
--- NOTE | 2025-04-05 22:01 | EDRN ---
Pt with headache since yesterday for which he took tylenol without relief. Pt has been sleeping most of yesterday and today due to rain. Pt with elevated bp readings at home in 180-190's which prompted ED visit jennifer. Usual SBP reportedly
140's. Pt denies cp, sob, dizziness, visual disturbance, abd pain, vomiting. Pt with intermittent nausea. While doing med rec, losartan was 25mg BID but pt says he takes it daily, no BID. Also, pt says he stopped taking eliquis 3 months ago. Pt
has not told his physician he did this. Discussed importance of blood thinner/afib with pt.
[2025-04-05 22:17] LABS: ALT (SGPT) 19 U/L (0-50); AST (SGOT) 18 U/L (17-59); Albumin 4.7 g/dl (3.5-5.0); Alkaline Phosphatase 79 U/L (38-126); Blood Urea Nitrogen 24 mg/dl (9-20); Calcium 9.3 mg/dl (8.4-10.2); Carbon Dioxide 25 mmol/L (22-30); Chloride 100 mmol/L (98-107); Estimated Creatinine Clearance 55 ml/min; Glucose 130 mg/dl (70-99); Potassium 4.3 mmol/L (3.5-5.1); Sodium 134 mmol/L (135-145); Total Bilirubin 0.7 mg/dl (0.2-1.3); Total Protein 7.7 g/dl (6.3-8.2); eGFR 51.45
[2025-04-05 23:00] VITALS: BP 150/74
[2025-04-06 00:04] VITALS: BP 157/73
[2025-04-06 01:05] VITALS: BP 148/84
== END 2025-04-06 01:15 | disposition home or self-care (01) ==
LOC: EMR 20:02
PROVIDERS: EMERGENCY PHYSICIAN Student in an Organized Health Care Education/Training Program; FAMILY PHYSICIAN Family Medicine
DX: I10 Essential (primary) hypertension (principal); I48.91 Unspecified atrial fibrillation
CPT/HCPCS: 96374; 99285; 70450; 80053; 85025; 93005

== ENCOUNTER → 2025-06-29 07:05 | Outpatient (REF) | payer MEDICARE, OTHER, SELFPAY | LOC: MRI 07:05 | PROVIDERS: ATTENDING PHYSICIAN Family Medicine; REFERRING PHYSICIAN Internal Medicine Critical Care Medicine | DX: M54.16 Radiculopathy, lumbar region (principal); R06.02 Shortness of breath; J90 Pleural effusion, not elsewhere classified | CPT/HCPCS: 71046; 72148 ==

== ENCOUNTER → 2025-07-08 08:11 | Outpatient (REF) | payer MEDICARE, OTHER, SELFPAY | LOC: RAD 08:11 | PROVIDERS: ATTENDING PHYSICIAN Family Medicine | DX: J81.1 Chronic pulmonary edema (principal) | CPT/HCPCS: 71270; Q9967 ==